=== PATIENT | male | born 1935 | race Caucasian/White ===

== ENCOUNTER 2016-03-12 12:58 | Inpatient (IN) | payer MEDICARE, OTHER ==
[~2016-03-12] VITALS: Ht 172.7 cm; Wt 89.3 kg
[2016-03-12] VITALS (8 sets, daily range): BP systolic 82–100; BP diastolic 47–68; PULSE 61–71; RESP 18; TEMP 97.6–97.7; O2SAT 98–100
[~2016-03-12 12:58] MED LIST: ANUS25SU PR; EZET10 PO; HYDR12.56 PO; SIMV40 PO; WARF2.5 PO; WARF5 PO; ePHEDrine/NS 25 MG/5 ML SYR IV ONE
--- NOTE | 2016-03-12 13:00 | PD ---
HPI Chief Complaint: abdominal pain, status post cholecystectomy Time Seen by Provider: 13:00 Travel History International Travel<30 days: No Contact w/Intl Traveler<30days: No Traveled to known affect area: No History of Present Illness HPI 80-year-old male came to the emergency room brought by EMS with history of syncopal episode at [facility]. Patient was recently operated and had a cholecystectomy done 1 week ago at [facility]. Patient is on Coumadin for prostatic heart valve and the Coumadin was stopped during the surgery. Patient was discharged home in couple days ago and was sent home on Lovenox and Coumadin which patient has been taking. He says he was having progressively worsening abdominal pain and distention since then. Today he was at the [facility] and was not feeling well and suddenly collapsed. 911 was called and when EMS arrived patient was coming back to his consciousness and they noticed that his pulse was in the 30s. When he stood up a little bit to transfer to the stretcher he passed out again. When patient arrived to the ER he was awake, eyes closed and answering questions. Patient said he was not feeling good at all and his blood pressure was 87/45. Heart rate was in the 70s. [facility] Past Medical History Narrative Medical List of his past medical history as reviewed from the nursing note. High Cholesterol: Yes Diminished Hearing: No Hypertension: Yes Immunizations Current: Yes Past Surgical History Valve Replacement: Yes (NOV 1998) Social History Alcohol Use: No Tobacco Use: No Substance Use: No Allergies-Medications (Allergen,Severity, Reaction): Coded Allergies: No Known Allergies (Unverified , 03/12/16) Comments No known drug allergies. Reported Meds & Prescriptions Reported Meds & Active Scripts Active Reported Zetia (Ezetimibe) 10 Mg Tab 10 Mg PO HS Hydrochlorothiazide 12.5 Mg Tab 12.5 Mg PO HS Zocor (Simvastatin) 40 Mg Tab 40 Mg PO HS Coumadin (Warfarin) 5 Mg Tab 5 Mg PO MOTHSA @ HS Coumadin (Warfarin) 2.5 Mg Tab 2.5 Mg PO SUTUWEFR @ HS Allopurinol 100 Mg Tab 100 Mg PO BID Narrative Medication List of his home medications reviewed from the nursing note. Review of Systems Except as stated in HPI: all other systems reviewed are Neg Physical Exam Narrative GENERAL: Awake, alert, elderly, moderate to significant distress SKIN: Warm and dry. Pale HEAD: Atraumatic. Normocephalic. EYES: Pupils equal and round. No scleral icterus. No injection or drainage. Pallor ENT: No nasal bleeding or discharge. Mucous membranes pink and moist. NECK: Trachea midline. No JVD. CARDIOVASCULAR: Regular rate and rhythm. No murmur appreciated. RESPIRATORY: No accessory muscle use. Clear to auscultation. Breath sounds equal bilaterally. GASTROINTESTINAL: Distended and tense abdomen, bruising, surgical wound from laparoscopy. Hepatic and splenic margins not palpable. MUSCULOSKELETAL: No obvious deformities. No clubbing. No cyanosis. No edema. NEUROLOGICAL: Awake and alert. No obvious cranial nerve deficits. Motor grossly within normal limits. Normal speech. PSYCHIATRIC: Appropriate mood and affect; insight and judgment normal. Data Data Last Documented VS Vital Signs Date Time Temp Pulse Resp B/P Pulse Ox O2 Delivery O2 Flow Rate FiO2 03/12/16 14:16 97.7 68 18 100/56 100 Room Air Orders Complete Blood Count With Diff (03/12/16 13:10) Comprehensive Metabolic Panel (03/12/16 13:10) Prothrombin Time / Inr (Pt) (03/12/16 13:10) Urinalysis - C+S If Indicated (03/12/16 13:10) Ct Abd/Pel W/O Iv Contrast (03/12/16 13:10) Iv Access Insert/Monitor (03/12/16 13:10) Ecg Monitoring (03/12/16 13:10) Oximetry (03/12/16 13:10) Sodium Chlor 0.9% 1000 Ml Inj (Ns 1000 M (03/12/16 13:10) Sodium Chloride 0.9% Flush (Ns Flush) (03/12/16 13:15) Type And Screen (03/12/16 13:10) Red Blood Cells (Rbc) (03/12/16 13:10) Sodium Chlor 0.9% 250 Ml Inj (Ns 250 Ml (03/12/16 13:15) Fresh Frozen Plasma (Ffp) (03/12/16 13:10) Urinary Catheter Insert/Apply (03/12/16 13:10) Chest, Single Ap (03/12/16 ) Phytonadione Inj (Vitamin K Inj) (03/12/16 13:45) Nicardipine Inj (Cardene Inj) (03/12/16 14:00) Piperacil-Tazo 4.5 Gm Premix (Zosyn 4.5 (03/12/16 14:00) Vancomycin Inj (Vancomycin Inj) (03/12/16 14:00) Blood Product Administration .UPON TRANSFUSION (03/12/16 14:03) Admit Order (Ed Use Only) (03/12/16 14:10) Labs Laboratory Tests Test 03/12/16 03/12/16 03/12/16 13:30 13:40 13:44 White Blood Count 16.2 TH/MM3 Red Blood Count 2.79 MIL/MM3 Hemoglobin 9.0 GM/DL Hematocrit 26.3 % Mean Corpuscular Volume 94.1 FL Mean Corpuscular Hemoglobin 32.2 PG Mean Corpuscular Hemoglobin 34.3 % Concent Red Cell Distribution Width 14.9 % Platelet Count 192 TH/MM3 Mean Platelet Volume 10.0 FL Neutrophils (%) (Auto) 84.6 % Lymphocytes (%) (Auto) 9.4 % Monocytes (%) (Auto) 5.5 % Eosinophils (%) (Auto) 0.1 % Basophils (%) (Auto) 0.4 % Neutrophils # (Auto) 13.7 TH/MM3 Lymphocytes # (Auto) 1.5 TH/MM3 Monocytes # (Auto) 0.9 TH/MM3 Eosinophils # (Auto) 0.0 TH/MM3 Basophils # (Auto) 0.1 TH/MM3 CBC Comment DIFF FINAL Differential Comment Prothrombin Time 12.6 SEC Prothromb Time International 1.1 RATIO Ratio Urine Color YELLOW Urine Turbidity CLEAR Urine pH 5.5 Urine Specific [place] 1.018 Urine Protein TRACE mg/dL Urine Glucose (UA) NEG mg/dL Urine Ketones NEG mg/dL Urine Occult Blood NEG Urine Nitrite NEG Urine Bilirubin NEG Urine Urobilinogen LESS THAN 2.0 MG/DL Urine Leukocyte Esterase SMALL Urine RBC 4 /hpf Urine WBC 2 /hpf Urine Squamous Epithelial <1 /hpf Cells Urine Bacteria RARE /hpf Urine Hyaline Casts 1 /lpf Urine Mucus MOD /lpf Microscopic Urinalysis Comment CULT NOT INDICATED Sodium Level 137 MEQ/L Potassium Level 4.7 MEQ/L Chloride Level 101 MEQ/L Carbon Dioxide Level 24.0 MEQ/L Anion Gap 12 MEQ/L Blood Urea Nitrogen 34 MG/DL Creatinine 3.05 MG/DL Estimat Glomerular Filtration 20 ML/MIN Rate Random Glucose 217 MG/DL Calcium Level 8.5 MG/DL Total Bilirubin 0.6 MG/DL Aspartate Amino Transf 43 U/L (AST/SGOT) Alanine Aminotransferase 49 U/L (ALT/SGPT) Alkaline Phosphatase 45 U/L Total Protein 5.6 GM/DL Albumin 3.0 GM/DL Blood Type O POSITIVE O POSITIVE Antibody Screen NEGATIVE Crossmatch Leukocyte-Reduced Leukocyte-Reduced Red Blood Red Blood Cells Cells Blood Bank Comment MDM Medical Decision Making Medical Screen Exam Complete: Yes Emergency Medical Condition: Yes Medical Record Reviewed: Yes Differential Diagnosis Post op intra-abdominal bleed, peritonitis, biliary leak Narrative Course 2:36 PM based on the bedside ultrasound and patient's condition I ordered 1 L IV fluid bolus and 2 units of uncrossed matched blood. My suspicion was very high for intra-abdominal bleed. I immediately called the general surgeon and spoke with Dr. Simms. He'll get me know that he was in the OR operating and as soon as he was done he would come down to see the patient. Patient's blood pressure has slowly started to come up and currently between 90-100 systolic. However his abdomen seems to be more distended currently. Blood test results have come back. I spoke with the enrollment clerk from [facility] and he wants the patient to be sent to the CAT scan stat. Awaiting for the CT to be done and resulted. Awaiting for Dr. Simms. Patient's mental status remains stable. Given the fact the patient is getting Lovenox and started on Coumadin I gave him 10 mg of subcutaneous vitamin K and ordered 2 units of FFP. Critical Care Narrative Aggregate critical care time was 60 minutes. Time to perform other separately billable procedures was not included in the critical care time. My time did not include minutes spent treating any other patients simultaneously or on activities that did not directly contribute to the patient's treatment. The services I provided to this patient were to treat and/or prevent clinically significant deterioration that could result in: Inntra-abdominal bleed, hemorrhagic shock, blood transfusion, fluid resuscitation I provided critical care services requiring my management, as noted below: Chart data review, documentation time, medication orders and management, vital sign assessments/reviewing monitor data, ordering and reviewing lab tests, ordering and interpreting/reviewing x-rays and diagnostic studies, care of the patient and discussion of the patient with the admitting physicians. Procedures Procedure Narrative Emergency department E-FAST was performed with patient consent. The curvilinear probe was used in the right upper quadrant/Morison's pouch, suprapubic, left upper quadrant/spleenorenal space, epigastric, parasternal long axis and anterior bilateral chest wall. There was significant amount of positive free fluid. Most possibly blood EKG Prior to Arrival: No Physician Communication Physician Communication Dr. Simms, Dr. Noriega Diagnosis Primary Impression: Intra abdominal hemorrhage Additional Impression: Postoperative hemorrhagic shock Qualified Code: T81.19XA - Postoperative hemorrhagic shock, initial encounter Admitting Information Admitting Physician Requests: Admit Kaleigh Romo MD Mar 12, 2016 13:00 Kaleigh Romo MD Mar 12, 2016 13:00
[2016-03-12] MEDS ORDERED: SODIUM CHLOR 0.9% 1000 ML INJ 1,000 ML IV SCH (13:10)
[2016-03-12] MEDS ORDERED: SODIUM CHLORIDE 0.9% FLUSH 5 ML FLUSH IVF PRN (13:15)
[2016-03-12] MEDS ORDERED: SODIUM CHLOR 0.9% 250 ML INJ 250 ML IV ONE (13:15)
[2016-03-12] MEDS ORDERED: HYDR12.56 PO (13:30)
[2016-03-12] MEDS ORDERED: COUM5TAB PO (13:30)
[2016-03-12] MEDS ORDERED: ZETI10TA5 PO (13:30)
[2016-03-12] MEDS ORDERED: ALLO100T PO (13:30)
[2016-03-12] MEDS ORDERED: ZOCO40TA PO (13:30)
[2016-03-12] MEDS ORDERED: COUM2.5T PO (13:30)
[2016-03-12 13:43] LABS: AUTOMATED NEUTROPHIL # 13.7 TH/MM3 (1.8-7.7); BASOPHIL # 0.1 TH/MM3 (0-0.2); BASOPHIL % 0.4 % (0.0-2.0); EOSINOPHIL % 0.1 % (0.0-4.0); HEMATOCRIT 26.3 % (39.0-51.0); HEMO FLAGS DIFF FINAL; LYMPH % 9.4 % (9.0-44.0); LYMPHOCYTE # 1.5 TH/MM3 (1.0-4.8); MEAN CELL VOLUME 94.1 FL (80.0-100.0); MEAN CORPUSCULAR HEMOGLOBIN 32.2 PG (27.0-34.0); MEAN CORPUSCULAR HGB CONC 34.3 % (32.0-36.0); MONO % 5.5 % (0.0-8.0); NEUT % 84.6 % (16.0-70.0); PLATELET COUNT 192 TH/MM3 (150-450); RED BLOOD COUNT 2.79 MIL/MM3 (4.50-5.90); RED CELL DISTRIBUTION WIDTH 14.9 % (11.6-17.2); WHITE BLOOD COUNT 16.2 TH/MM3 (4.0-11.0)
[2016-03-12] MEDS ORDERED: PHYTONADIONE 10 MG/ML VIAL SQ ONE (13:45)
[2016-03-12 13:54] LABS: INTERNATIONAL NORMALIZED RATIO 1.1 RATIO; PROTHROMBIN TIME - PATIENT 12.6 SEC (9.8-11.6)
[2016-03-12 13:58] LABS: ANION GAP 12 MEQ/L (5-15); AST (GOT) 43 U/L (15-37); BLOOD UREA NITROGEN 34 MG/DL (7-18); CHLORIDE 101 MEQ/L (98-107); GLOMERULAR FILTRATION RATE 20 ML/MIN (>89); POTASSIUM 4.7 MEQ/L (3.5-5.1); SODIUM (NA) 137 MEQ/L (136-145)
[2016-03-12 14:00] LABS: BACTERIA, URINE RARE /hpf; BLOOD, URINE NEG (NEG); GLUCOSE,URINE NEG (NEG); HYALINE CAST, URINE 1 /lpf (RARE); KETONE, URINE NEG (NEG); MUCUS URINE MOD /lpf (OCC); NITRITE,URINE NEG (NEG); PH, URINE 5.5 (5.0-8.5); SQUAMOUS EPITHELIAL CELL URINE <1 /hpf (0-5); URINE COLOR YELLOW (YELLW/STRAW)
[2016-03-12] MEDS: VANCOMYCIN INJ 1,000 MG in SODIUM CHLOR 0.9% 250 ML INJ 250 ML IV ONE ×2 (14:00→15:10)
[2016-03-12] MEDS ORDERED: PIPERACIL-TAZO 4.5 GM PREMIX 100 ML IV ONE (14:00)
[2016-03-12] MEDS ORDERED: niCARdipine INJ 25 MG in SODIUM CHLOR 0.9% 250 ML INJ 250 ML IV SCH (14:00)
[2016-03-12 14:01] LABS: ALKALINE PHOSPHATASE 45 U/L (45-117); ALT (GPT) 49 U/L (12-78); COMMENT (UR) CULT NOT INDICATED; CULTURE IF INDICATED CULT NOT INDICATED; TOTAL BILIRUBIN ADULT 0.6 MG/DL (0.2-1.0)
--- NOTE | 2016-03-12 14:05 | RADRPT ---
EXAM DATE/TIME: 03/12/2016 13:52 [facility] COMPARISON: No previous studies available for comparison. INDICATIONS : Syncopal episode. MEDICAL HISTORY : Hypertension. SURGICAL HISTORY : CABG. ENCOUNTER: Initial ACUITY: 1 day PAIN SCORE: 0/10 LOCATION: Bilateral chest FINDINGS: A single view of the chest demonstrates the lungs to be symmetrically aerated without evidence of mas s, infiltrate or effusion. The heart size is enlarged. There is evidence of previous cardiothoracic surgery.. Osseous structures are intact. CONCLUSION: No acute pulmonary infiltrates. Pop Anderson MD on March 12, 2016 at 14:03 Board Certified Radiologist. This report was verified electronically.
[2016-03-12] MEDS ORDERED: PROTAMINE SULFATE 50 MG/5 ML VIAL IV PUSH ONE ×3 (15:00→15:15)
--- NOTE | 2016-03-12 15:04 | RADRPT ---
EXAM DATE/TIME: 03/12/2016 14:37 [facility] COMPARISON: No previous studies available for comparison. INDICATIONS : Discomfort and distention in abdominal area. Cholecystectomy six days ago. ORAL CONTRAST: No oral contrast ingested. RADIATION DOSE: 9.96 CTDIvol (mGy) MEDICAL HISTORY : Hypertension. SURGICAL HISTORY : Cholecystectomy. ENCOUNTER: Initial ACUITY: 1 day PAIN SCALE: 5/10 LOCATION: abdomen/pelvis TECHNIQUE: Volumetric scanning of the abdomen and pelvis was performed. Using automated exposure control and ad justment of the mA and/or kV according to patient size, radiation dose was kept as low as reasonably achievable to obtain optimal diagnostic quality images. The lack of IV contrast limits the diagnosis for certain organ pathology. FINDINGS: LOWER LUNGS: Bibasilar atelectasis. LIVER: Homogeneous density. There is a cyst in the right lobe measuring 2.2 cm. There is a cyst near the por ta hepatis measuring 3 cm. There is no dilation of the biliary tree. Status post recent cholecystect violeta. There is complex fluid around the liver. SPLEEN: Normal size without lesion. There is complex fluid around the spleen. PANCREAS: Within normal limits. KIDNEYS: Normal in size and shape. There is no mass, stone, or hydronephrosis. ADRENAL GLANDS: Within normal limits. VASCULAR: There is no aortic aneurysm. BOWEL/MESENTERY: The bowel gas pattern is within normal limits. There is complex fluid around the liver and spleen. Th ere is a complex mass measuring 12.3 cm x 6.4 cm in the right midabdomen. There is free fluid seen in the pelvis and along the paracolic gutters. The findings are suggestive of hemorrhage within the per itoneal cavity. The prominent mass is most likely a large hematoma. ABDOMINAL WALL: Within normal limits. There is nonspecific edema in the posterior soft tissues RETROPERITONEUM: There is no lymphadenopathy. BLADDER: Land catheter in place. Non-distended REPRODUCTIVE: Within normal limits. INGUINAL: There is no lymphadenopathy or hernia. MUSCULOSKELETAL: Within normal limits for patient age. The findings were called by telephone to the ER physician. CONCLUSION: 1. Large amount of complex fluid seen throughout the abdomen and pelvis suspicious for hemorrhage. 2. There is a large complex mass in the right midabdomen which I suspect is a large hematoma. This is just inferior to the right lobe of the liver. 3. There are 2 benign-appearing hepatic cysts. 4. Status post cholecystectomy. Pop J. Siragusa, MD on March 12, 2016 at 14:53 Board Certified Radiologist. This report was verified electronically.
[2016-03-12] MEDS ORDERED: ONDANSETRON HCL 4 MG/2 ML VIAL IV PUSH ONE (15:05)
[2016-03-12] MEDS ORDERED: ePHEDrine/NS 25 MG/5 ML SYR IV ONE (15:05)
[2016-03-12] MEDS ORDERED: PHENYLEPH/NS 1000 MCG/10 ML SYR IV ONE ×2 (15:05→15:14)
[2016-03-12] MEDS ORDERED: PROPOFOL 200 MG/20 ML AMP IV ONE (15:05)
[2016-03-12] MEDS ORDERED: NORMOSOL R INJ 2,000 ML IV ONE (15:05)
[2016-03-12] MEDS ORDERED: NEOSTIGMINE 3 MG/3 ML SYR IV ONE (15:05)
[2016-03-12] MEDS ORDERED: ETOMIDATE 40 MG/20 ML VIAL IV PUSH ONE (15:14)
[2016-03-12] MEDS: PANTOPRAZOLE SODIUM 40 MG VIAL IV SCH (15:45)
[2016-03-12] MEDS ORDERED: CHLORHEXIDINE GLUCONATE 2 % 1 PACK (2 CLOTHS) TOP PRN (15:45)
[2016-03-12] MEDS ORDERED: SODIUM CHLOR 0.9% 1000 ML INJ 1,000 ML IV ONE (15:45)
[2016-03-12] MEDS ORDERED: SODIUM CHLORIDE 0.9% FLUSH 5 ML FLUSH IV FLUSH PRN (15:45)
[2016-03-12] MEDS ORDERED: RESP: ALBUTEROL 2.5 MG/IPRATROPIUM 0.5 MG NEB (PRN) INH (15:45)
[2016-03-12] MEDS ORDERED: MISCELLANEOUS NURSING INFORMATION XX SCH (15:45)
[2016-03-12] MEDS ORDERED: MORPHINE SULFATE 4 MG/ML INJ IV PRN (16:00)
[2016-03-12] MEDS ORDERED: BISACODYL EC 5 MG TABEC PO PRN (16:00)
[2016-03-12] MEDS ORDERED: ONDANSETRON HCL 4 MG/2 ML VIAL IV PRN (16:00)
[2016-03-12] MEDS ORDERED: SENNOSIDES 8.6 MG TAB PO PRN (16:00)
--- NOTE | 2016-03-12 16:01 | HHI.HP ---
HPI Service Critical Care Medicine Primary Care Physician Non-Staff Admission Diagnosis Intraabdominal hemorrhage s/o recent cholecystectomy, syncope Diagnosis: Travel History International Travel<30 Days: No Contact w/Intl Traveler <30 Da: No Traveled to Known Affected Are: No History of Present Illness 72-year-old male with a medical history significant for mechanical aortic valve on anticoagulation who recently underwent cholecystectomy on March 06 at [facility] [place]. He was on Lovenox preoperatively 150 mg every 12 hourly reportedly per family. Following cholecystectomy he required 3 units of PRBCs over the next 2 days and was Admitted at the hospital because of intra- abdominal blood loss and borderline blood pressure and was subsequently discharged on Friday 03/10 and was resumed on Coumadin and Lovenox 75 mg every 12 hourly. He continued to have some dizziness at home following discharge with lightheadedness. This morning patient got worse with increasing lightheadedness and abdominal tightness with increasing distention. He suddenly collapsed and EMS was called - patient was found to be hypotensive and transferred to [facility] ER. He was noted to have a blood pressure of 87 x 45 with heart rate in the 70s on arrival in the ER and appeared extremely pale for documentation. He was found to have free fluid in his abdomen on ultrasound done by ER physician and was diagnosed to have intra-abdominal bleeding. He was given 2 units of O- uncrossmatched blood stat and 1 L of normal saline bolus. Patient was accepted for admission by critical care medicine service and I immediately went to the ER on being notified. As I arrived patient was just being we'll await for CT abdomen pelvis. History is obtained by discussion with patient's family at bedside and subsequently from patient. When I evaluated the patient he was laying on the stretcher. He denied any lightheadedness on laying flat. He denied any chest pain or shortness of breath. He did complain of some abdominal tightness and distention. He had taken a dose of Lovenox 75 mg subcutaneously this morning around 10 AM and had Coumadin last night. He received vitamin K ordered by ER physician. I subsequently ordered protamine 50 mg IV stat after discussion with Dr. Simms who planned to take the patient to the OR. Off note patient did have some abnormal kidney function per family prior to discharge from [place]. His creatinine was 3.3 today on arrival. History PFSH Past Medical History Narrative Medical High Cholesterol: Yes Diminished Hearing: No Hypertension: Yes Immunizations Current: Yes Past Surgical History Valve Replacement: Yes (NOV 1998) Status post aortic valve replacement with mechanical aortic valve Social History Alcohol Use: Moderate Tobacco Use: No Substance Use: No Allergies-Medications Allergies-Medications (Allergen,Severity, Reaction): Coded Allergies: No Known Allergies (Unverified , 03/12/16) Comments No known drug allergies. Reported Meds & Prescriptions Reported Meds & Active Scripts Active Reported Zetia (Ezetimibe) 10 Mg Tab 10 Mg PO HS Hydrochlorothiazide 12.5 Mg Tab 12.5 Mg PO HS Zocor (Simvastatin) 40 Mg Tab 40 Mg PO HS Coumadin (Warfarin) 5 Mg Tab 5 Mg PO MOTHSA @ HS Coumadin (Warfarin) 2.5 Mg Tab 2.5 Mg PO SUTUWEFR @ HS Allopurinol 100 Mg Tab 100 Mg PO BID ROS Review of Systems Except as stated in HPI: all other systems reviewed are Neg Physical Exam Vital Signs Vital Signs Date Time Temp Pulse Resp B/P Pulse Ox O2 Delivery O2 Flow Rate FiO2 03/12/16 14:16 97.7 68 18 100/56 100 Room Air 03/12/16 14:00 97.6 61 18 96/58 100 Room Air 03/12/16 13:50 97.7 61 18 100/62 98 Room Air 03/12/16 13:39 63 18 96/50 100 Room Air 03/12/16 13:35 98 Room Air 03/12/16 13:11 63 18 96 Room Air 03/12/16 13:00 97.6 71 18 82/47 98 Physical Exam Narrative GENERAL: Awake, alert, elderly male laying flat in ER stretcher SKIN: Warm and dry. Pale HEAD: Atraumatic. Normocephalic. EYES: Pupils equal and round. No scleral icterus. No injection or drainage. Pallor ENT: No nasal bleeding or discharge. Mucous membranes pink and moist. NECK: Trachea midline. No JVD. CARDIOVASCULAR: Regular rate and rhythm. No murmur appreciated. RESPIRATORY: No accessory muscle use. Clear to auscultation. Breath sounds equal bilaterally. GASTROINTESTINAL: Distended and tense abdomen, bruising, surgical wound from laparoscopy. Hepatic and splenic margins not palpable. Bowel sounds sluggish MUSCULOSKELETAL: No obvious deformities. No clubbing. No cyanosis. No edema. NEUROLOGICAL: Awake and alert. No obvious cranial nerve deficits. Motor grossly within normal limits. Normal speech. PSYCHIATRIC: Appropriate mood and affect; insight and judgment normal. Laboratory Laboratory Tests Test 03/12/16 03/12/16 03/12/16 13:30 13:40 13:44 White Blood Count 16.2 Red Blood Count 2.79 Hemoglobin 9.0 Hematocrit 26.3 Mean Corpuscular Volume 94.1 Mean Corpuscular Hemoglobin 32.2 Mean Corpuscular Hemoglobin 34.3 Concent Red Cell Distribution Width 14.9 Platelet Count 192 Mean Platelet Volume 10.0 Neutrophils (%) (Auto) 84.6 Lymphocytes (%) (Auto) 9.4 Monocytes (%) (Auto) 5.5 Eosinophils (%) (Auto) 0.1 Basophils (%) (Auto) 0.4 Neutrophils # (Auto) 13.7 Lymphocytes # (Auto) 1.5 Monocytes # (Auto) 0.9 Eosinophils # (Auto) 0.0 Basophils # (Auto) 0.1 CBC Comment DIFF FINAL Differential Comment Prothrombin Time 12.6 Prothromb Time International 1.1 Ratio Urine Color YELLOW Urine Turbidity CLEAR Urine pH 5.5 Urine Specific [place] 1.018 Urine Protein TRACE Urine Glucose (UA) NEG Urine Ketones NEG Urine Occult Blood NEG Urine Nitrite NEG Urine Bilirubin NEG Urine Urobilinogen LESS THAN 2.0 Urine Leukocyte Esterase SMALL Urine RBC 4 Urine WBC 2 Urine Squamous Epithelial <1 Cells Urine Bacteria RARE Urine Hyaline Casts 1 Urine Mucus MOD Microscopic Urinalysis Comment CULT NOT INDICATED Sodium Level 137 Potassium Level 4.7 Chloride Level 101 Carbon Dioxide Level 24.0 Anion Gap 12 Blood Urea Nitrogen 34 Creatinine 3.05 Estimat Glomerular Filtration 20 Rate Random Glucose 217 Calcium Level 8.5 Total Bilirubin 0.6 Aspartate Amino Transf 43 (AST/SGOT) Alanine Aminotransferase 49 (ALT/SGPT) Alkaline Phosphatase 45 Total Protein 5.6 Albumin 3.0 Blood Type O POSITIVE O POSITIVE Antibody Screen NEGATIVE Crossmatch Leukocyte-Reduced Leukocyte-Reduced Red Blood Red Blood Cells Cells Blood Bank Comment Result Diagram: 03/12/16 1330 03/12/16 1330 Imaging Last Impressions Abdomen/Pelvis CT 03/12/16 1310 Signed Impressions: Service Date/Time: Saturday, March 12, 2016 14:37 - CONCLUSION: 1. Large amount of complex fluid seen throughout the abdomen and pelvis suspicious for hemorrhage. 2. There is a large complex mass in the right midabdomen which I suspect is a large hematoma. This is just inferior to the right lobe of the liver. 3. There are 2 benign-appearing hepatic cysts. 4. Status post cholecystectomy. Pop Anderson MD Chest X-Ray 03/12/16 0000 Signed Impressions: Service Date/Time: Saturday, March 12, 2016 13:52 - CONCLUSION: No acute pulmonary infiltrates. Pop Anderson MD Assessment and Plan Assessment and Plan 80-year-old male with: Acute blood loss anemia Intra-abdominal bleeding hemorrhagic shock Acute kidney injury Hyperglycemia Recent laparoscopic cholecystectomy Hyperlipidemia Hypertension Plan: Neuro: Follow neuro status. Morphine when necessary for pain. [place] when necessary when cleared for by mouth. Cardiovascular: Aggressive fluid resuscitation. Status post 2 units PRBCs. Continue maintenance IV fluids. Anticoagulation being reversed. Protamine 50 mg IV to reverse Lovenox ordered. Vitamin K ordered by ER physician. Cardiology consulted for mechanical aortic valve as patient is now off anticoagulation for bleeding intra-abdominally and need for surgical drainage. Pulmonary: Supplemental O2 as needed. Bronchodilators when necessary GI/liver: Status post recent cholecystectomy. Keep nothing by mouth as Dr. Simms planning to take patient to the OR for laparoscopy and possible evacuation of intra-abdominal hematoma following reversal of Lovenox. Renal/: IV hydration, strict intake output, monitor and replete electrolytes, follow BUN/creatinine. Check UA. ID: Perioperative antibiotic prophylaxis per Dr. Simms Heme: Follow CBC. Lovenox and Coumadin to be held currently. Vitamin K and protamine ordered to reverse Coumadin and Lovenox prior to exploration by Dr. Simms. Transfuse to keep hemoglobin above 8 g percent. Endocrine: Watch for hyperglycemia. SSI for glycemic control Prophylaxis: PPI/SCDs. Start subcutaneous heparin/Lovenox when okay with Dr. Simms for DVT prophylaxis and eventually will need full anticoagulation for mechanical aortic valve. Condition critical. Discussed with Dr. Simms. Discussed with patient and family members at bedside regarding current clinical status and plan of care and they voiced understanding and were agreeable. Time spent on critical care excluding procedures 60 minutes Popeye Noriega MD Mar 12, 2016 16:01
[2016-03-12] MEDS ORDERED: GLUCAGON 1 MG/ML VIAL IM/SQ PRN (16:15)
[2016-03-12] MEDS ORDERED: DEXTROSE 50% IN WATER 50 ML VIAL(D50) IV PRN (16:15)
[2016-03-12] MEDS ORDERED: fentaNYL CITRATE 250 MCG/5 ML AMP ONE (16:20)
[2016-03-12] MEDS ORDERED: ACETAMINOPHEN 1000 MG/100 ML VIAL IV ONE (16:20)
[2016-03-12] MEDS ORDERED: DICLOFENAC SODIUM 37.5 MG/ML VIAL IV PUSH ONE (16:20)
[2016-03-12] MEDS ORDERED: MIDAZOLAM HCL 2 MG/2 ML VIAL ONE (16:20)
[2016-03-12] MEDS ORDERED: BUPIVACAINE/EPINEPHRINE 0.25% PF 30 ML VIAL ONE (17:11)
--- NOTE | 2016-03-12 19:21 | HHI.PR ---
cc: Harry Simms MD Immediate Post Op Note Procedure Date: Mar 12, 2016 Pre Op Diagnosis: (1) Intra abdominal hemorrhage (2) Postoperative hemorrhagic shock Post Op Diagnosis: (1) Intra abdominal hemorrhage (2) Postoperative hemorrhagic shock Surgeon: Harry Simms [employer] Architect(s): Please refer to the OR record Procedure: Diagnostic laparoscopy Evacuation of large intra-abdominal hematoma and intra-abdominal blood Placement of LYRIC drain to drain the gallbladder fossa Complications: None Specimen(s) removed: Old clot Estimated blood loss: 500 cc or more of old blood and clot Anesthesia: General Drains: None IVF Patient to: PACU Patient Condition: Good Implant/Devices: SEE IMPLANT LOG (if applicable) Date/Time of Procedure: SEE SURGICAL CARE RECORD Harry Simms MD Mar 12, 2016 19:21
[2016-03-12 20:57] LABS: AUTOMATED NEUTROPHIL # 9.3 TH/MM3 (1.8-7.7); BASOPHIL % 0.2 % (0.0-2.0); HEMATOCRIT 25.1 % (39.0-51.0); HEMO FLAGS DIFF FINAL; LYMPH % 7.2 % (9.0-44.0); LYMPHOCYTE # 0.8 TH/MM3 (1.0-4.8); MEAN CELL VOLUME 90.8 FL (80.0-100.0); MEAN CORPUSCULAR HEMOGLOBIN 30.4 PG (27.0-34.0); MEAN CORPUSCULAR HGB CONC 33.5 % (32.0-36.0); MONO % 9.1 % (0.0-8.0); NEUT % 83.5 % (16.0-70.0); PLATELET COUNT 105 TH/MM3 (150-450); RED BLOOD COUNT 2.76 MIL/MM3 (4.50-5.90); RED CELL DISTRIBUTION WIDTH 14.8 % (11.6-17.2); WHITE BLOOD COUNT 11.2 TH/MM3 (4.0-11.0)
[2016-03-12 21:17] LABS: APTT (PATIENT) 36.2 SEC (24.3-30.1); INTERNATIONAL NORMALIZED RATIO 1.2 RATIO; PROTHROMBIN TIME - PATIENT 13.4 SEC (9.8-11.6)
[2016-03-12] MEDS ORDERED: PROPOFOL 1000 MG/100 ML INJ 100 ML ONE (21:35)
[2016-03-12] MEDS: SODIUM CHLOR 0.9% 1000 ML INJ 1,000 ML IV SCH ×2 (21:55→22:40)
[2016-03-12] MEDS ORDERED: DO NOT ADM ANY ANTICOAGULANT DRUGS XX PRN (22:00)
[2016-03-12] MEDS ORDERED: PROPOFOL 1000 MG/100 ML IV SCH (22:00)
[2016-03-12] MEDS: SODIUM CHLORIDE 0.9% FLUSH 5 ML FLUSH IV FLUSH SCH (22:00)
[2016-03-12] MEDS ORDERED: *morphine SULFATE 8 MG/ML PERIprocedure ONLY ONE (22:09)
[2016-03-12] MEDS: INSULIN ASPART SUPPLEMENTAL SCALE SQ SCH (22:10)
[2016-03-13] VITALS (13 sets, daily range): BP systolic 106–128; BP diastolic 37–67; PULSE 57–70; RESP 15–17; TEMP 97.7–100; O2SAT 97–100
[2016-03-13 01:40] LABS: BLOOD GAS BASE EXCESS -4.2 mmol/L (-2-2); BLOOD GAS HCO3 20 mmol/L (22-26); BLOOD GAS METHEMOGLOBIN 0.9 % (0-2); BLOOD GAS O2 HGB SATURATION 95 % (90-100); BLOOD GAS OXYGEN CONTENT 11.5 Vol % (12.0-20.0); BLOOD GAS PCO2 37 mmHg (38-42); BLOOD GAS PO2 95 mmHg (61-120); BLOOD GAS TOTAL HGB 8.5 G/DL (12.0-16.0); CRITICAL VALUE NO; DRAW SITE ALINE; FIO2 50 %; OXYGEN DEVICE VENTILATOR; TEMP CORR TO 98.6; VENT SETTINGS AC14/550/PEEP5
[2016-03-13 01:41] LABS: STAT NO; ULNAR PULSE PRESENT
[2016-03-13 02:06] LABS: AUTOMATED NEUTROPHIL # 7.4 TH/MM3 (1.8-7.7); BASOPHIL % 0.1 % (0.0-2.0); HEMATOCRIT 25.2 % (39.0-51.0); HEMO FLAGS AUTO DIFF; LYMPH % 10.5 % (9.0-44.0); LYMPHOCYTE # 0.9 TH/MM3 (1.0-4.8); MEAN CELL VOLUME 87.5 FL (80.0-100.0); MEAN CORPUSCULAR HEMOGLOBIN 30.8 PG (27.0-34.0); MEAN CORPUSCULAR HGB CONC 35.2 % (32.0-36.0); MONO % 5.6 % (0.0-8.0); NEUT % 83.8 % (16.0-70.0); PLATELET COUNT 83 TH/MM3 (150-450); RED BLOOD COUNT 2.88 MIL/MM3 (4.50-5.90); RED CELL DISTRIBUTION WIDTH 14.8 % (11.6-17.2); WHITE BLOOD COUNT 8.8 TH/MM3 (4.0-11.0)
[2016-03-13 02:16] LABS: BICARBONATE 23.5 MEQ/L (21.0-32.0); CALCIUM-PROTEIN CORRECTED 8.2 MG/DL (8.5-10.1); POTASSIUM 4.6 MEQ/L (3.5-5.1); TOTAL BILIRUBIN ADULT 0.8 MG/DL (0.2-1.0)
[2016-03-13 02:44] LABS: PLATELET ESTIMATE SMEAR LOW (NORMAL); PLATELET MORPHOLOGY NORMAL (NORMAL); SCAN/DIFF AUTO DIFF CONFIRMED
[2016-03-13] MEDS: CHLORHEXIDINE GLUCONATE 2 % 1 PACK (2 CLOTHS) TOP SCH (04:00)
[2016-03-13] MEDS: SODIUM CHLOR 0.9% 1000 ML INJ 1,000 ML IV SCH ×2 (05:20→22:29)
--- NOTE | 2016-03-13 05:36 | MB ---
cc: NEMESIOHARRY DATE OF CONSULTATION 03/12/2016 REASON FOR CONSULTATION Intraabdominal bleeding. HISTORY This is a pleasant 80-year-old gentleman who had undergone cholecystectomy the at [facility] by Dr. Roy. Apparently the patient was on anticoagulation because of his heart valve. He was a little oozy after his surgery; a LYRIC had been placed but this oozing had stopped. He was sent home on Sunday; he was doing very well, then went to religion and then became hypotensive and dizzy, was brought to the emergency room here at [place] and a CT scan showed a fair amount of blood. I did talk to Dr. Roy on the telephone; he update me on his clinical condition. Apparently the family states the patient was getting Lovenox 150 mg twice a day. At any rate, he is here and requires urgent exploration. PAST MEDICAL HISTORY 1. Significant for a heart valve. He is on anticoagulation for a long period of time. 2. He has hypertension. MEDICATIONS He was taking Coumadin. He had taken his dose of Coumadin but he was on the Lovenox 150 mg b.i.d. PHYSICAL EXAMINATION GENERAL: On physical exam he is lying flat. He is alert, looks a little pale. He is wondering when he is going to the operating room. HEART: Regular rate. CHEST: He has a mediastinotomy scar. ABDOMEN: He is obviously distended and tender in his abdomen. He has old surgical sites that are healed. SKIN: There are bruises. NEUROLOGIC: He is alert, oriented, is able to converse with me. LABORATORY His white count is 16, H&H 9.26. This is down from his preoperative blood work. He was given 3 units of blood in the emergency room. ASSESSMENT A 80-year-old gentleman who had a cholecystectomy at another facility. Unfortunately he developed coagulopathy and now has a fair amount of blood in his abdomen. PLAN Discussed with the patient, the patient's family and the patient's surgeon, Dr. Roy, over at [facility]. He has been given vitamin K, he was given blood and he has been given some protamine by the critical care physician. We will take him urgently to the operating room to evaluate this hematoma and be assured of no other bleeding source. Harry Simms MD JDESTINEE/SSB /7:31 PM /5:25 AM
[2016-03-13] MEDS: INSULIN ASPART SUPPLEMENTAL SCALE SQ SCH ×3 (06:00→23:56)
--- NOTE | 2016-03-13 08:26 | MB ---
cc: RADHAMES WEBSTER DATE OF CONSULTATION: 03/12/2016 HISTORY OF PRESENT ILLNESS A 72-year-old white male with history of placement of mechanical aortic valve. He underwent cholecystectomy on March 06 at [facility]. He was started back on Coumadin and Lovenox. He had dizziness, lightheadedness and syncope. He was found to be hypotensive. He was diagnosed with bleeding from his abdomen. He was taken to surgery by Dr. Simms and was found to have hematoma which was evacuated. He is now in the ICU. His Coumadin was reversed. PAST MEDICAL HISTORY Positive for: 1. Aortic valve replacement using mechanical aortic valve in November of <<1:16>> . 2. History of hypertension. 3. Dyslipidemia. 4. Recent cholecystectomy as above. MEDICATION 1. Allopurinol. 2. Coumadin. 3. Zocor. 4. Hydrochlorothiazide. 5. Zetia. ALLERGIES None. SOCIAL HISTORY The patient does not smoke. He drinks alcohol. FAMILY HISTORY Negative for heart disease. REVIEW OF SYSTEMS Otherwise negative. PHYSICAL EXAMINATION VITAL SIGNS: Blood pressure 121/53. Pulse 60 and regular. HEENT: Negative. 2+ carotid upstrokes. No bruits. LUNGS: Clear. HEART: Regular rate and rhythm. No murmur or gallop or rub. ABDOMEN: Soft. Surgical wound dressed. EXTREMITIES: Without edema. 1+ distal pulses. NEURO: Grossly nonfocal. LABORATORY DATA Hemoglobin 8.4, potassium 4.7, creatinine 3.0. AST 43, ALT 49. DIAGNOSIS 1. Intraabdominal bleeding. 2. Hemorrhagic shock. 3. Acute kidney injury. 4. Recent laparoscopic cholecystectomy. 5. Status post aortic valve replacement using mechanical valve. 6. Hypertension. 7. Dyslipidemia. DISPOSITION Mr. Gan will be monitored in the ICU. At this time his Coumadin was reversed due to severe bleeding. Once he is stable, his Coumadin will need to be restarted since he has a mechanical aortic valve. I will follow him for cardiology during his hospitalization. Radhames Webster MD OQ/TLL /11:24 PM /8:03 AM [facility]
[2016-03-13 08:42] LABS: APTT (PATIENT) 33.4 SEC (24.3-30.1); INTERNATIONAL NORMALIZED RATIO 1.2 RATIO; PROTHROMBIN TIME - PATIENT 13.6 SEC (9.8-11.6)
[2016-03-13 08:43] LABS: MEAN CELL VOLUME 86.2 FL (80.0-100.0); MEAN CORPUSCULAR HEMOGLOBIN 30.9 PG (27.0-34.0); MEAN CORPUSCULAR HGB CONC 35.9 % (32.0-36.0); PLATELET COUNT 88 TH/MM3 (150-450); RED BLOOD COUNT 3.24 MIL/MM3 (4.50-5.90); RED CELL DISTRIBUTION WIDTH 15.3 % (11.6-17.2); WHITE BLOOD COUNT 10.7 TH/MM3 (4.0-11.0)
[2016-03-13 08:47] LABS: REVIEW FLAG FINAL
[2016-03-13 09:26] LABS: BICARBONATE 23.5 MEQ/L (21.0-32.0); CALCIUM-PROTEIN CORRECTED 7.7 MG/DL (8.5-10.1); POTASSIUM 4.8 MEQ/L (3.5-5.1); TOTAL BILIRUBIN ADULT 0.6 MG/DL (0.2-1.0)
[2016-03-13] MEDS: PANTOPRAZOLE SODIUM 40 MG VIAL IV SCH (09:29)
--- NOTE | 2016-03-13 09:30 | HHI.PR ---
Subjective Subjective Notes DAILY PROGRESS NOTE FOR SURGICAL ATTENDING, DR. HARRY SIMMS Objective Vitals/I&O Vital Signs Date Time Temp Pulse Resp B/P Pulse Ox O2 Delivery O2 Flow Rate FiO2 03/13/16 08:37 98 40 03/13/16 04:00 98.0 70 16 106/42 03/12/16 22:15 Mechanical Ventilator 03/12/16 19:39 10 Labs Laboratory Tests Test 03/12/16 03/12/16 03/12/16 03/12/16 13:30 13:40 13:44 20:40 White Blood Count 16.2 11.2 Red Blood Count 2.79 2.76 Hemoglobin 9.0 8.4 Hematocrit 26.3 25.1 Mean Corpuscular Volume 94.1 90.8 Mean Corpuscular Hemoglobin 32.2 30.4 Mean Corpuscular Hemoglobin 34.3 33.5 Concent Red Cell Distribution Width 14.9 14.8 Platelet Count 192 105 Mean Platelet Volume 10.0 9.3 Neutrophils (%) (Auto) 84.6 83.5 Lymphocytes (%) (Auto) 9.4 7.2 Monocytes (%) (Auto) 5.5 9.1 Eosinophils (%) (Auto) 0.1 0.0 Basophils (%) (Auto) 0.4 0.2 Neutrophils # (Auto) 13.7 9.3 Lymphocytes # (Auto) 1.5 0.8 Monocytes # (Auto) 0.9 1.0 Eosinophils # (Auto) 0.0 0.0 Basophils # (Auto) 0.1 0.0 CBC Comment DIFF FINAL DIFF FINAL Differential Comment Prothrombin Time 12.6 13.4 Prothromb Time International 1.1 1.2 Ratio Urine Color YELLOW Urine Turbidity CLEAR Urine pH 5.5 Urine Specific [place] 1.018 Urine Protein TRACE Urine Glucose (UA) NEG Urine Ketones NEG Urine Occult Blood NEG Urine Nitrite NEG Urine Bilirubin NEG Urine Urobilinogen LESS THAN 2.0 Urine Leukocyte Esterase SMALL Urine RBC 4 Urine WBC 2 Urine Squamous Epithelial <1 Cells Urine Bacteria RARE Urine Hyaline Casts 1 Urine Mucus MOD Microscopic Urinalysis Comment CULT NOT INDICATED Sodium Level 137 Potassium Level 4.7 Chloride Level 101 Carbon Dioxide Level 24.0 Anion Gap 12 Blood Urea Nitrogen 34 Creatinine 3.05 Estimat Glomerular Filtration 20 Rate Random Glucose 217 Calcium Level 8.5 Total Bilirubin 0.6 Aspartate Amino Transf 43 (AST/SGOT) Alanine Aminotransferase 49 (ALT/SGPT) Alkaline Phosphatase 45 Total Protein 5.6 Albumin 3.0 Blood Type O POSITIVE O POSITIVE Antibody Screen NEGATIVE Crossmatch Leukocyte-Reduced Leukocyte-Reduced Red Blood Red Blood Cells Cells Blood Bank Comment Activated Partial 36.2 Thromboplast Time Test 03/12/16 03/13/16 03/13/16 03/13/16 22:35 01:32 01:40 02:42 Nasal Screen MRSA (PCR) NEGATIVE Blood Gas Puncture Site HANS Blood Gas Patient Temperature 98.6 Blood Gas HCO3 20 Blood Gas Base Excess -4.2 Blood Gas Oxygen Saturation 95 Arterial Blood pH 7.36 Arterial Blood Partial 37 Pressure CO2 Arterial Blood Partial 95 Pressure O2 Arterial Blood Oxygen Content 11.5 Arterial Blood 2.0 Carboxyhemoglobin Arterial Blood Methemoglobin 0.9 Blood Gas Hemoglobin 8.5 Oxygen Delivery Device VENTILATOR Blood Gas Ventilator Setting AC14/550/PEEP5 Blood Gas Inspired Oxygen 50 White Blood Count 8.8 Red Blood Count 2.88 Hemoglobin 8.9 Hematocrit 25.2 Mean Corpuscular Volume 87.5 Mean Corpuscular Hemoglobin 30.8 Mean Corpuscular Hemoglobin 35.2 Concent Red Cell Distribution Width 14.8 Platelet Count 83 Mean Platelet Volume 9.1 Neutrophils (%) (Auto) 83.8 Lymphocytes (%) (Auto) 10.5 Monocytes (%) (Auto) 5.6 Eosinophils (%) (Auto) 0.0 Basophils (%) (Auto) 0.1 Neutrophils # (Auto) 7.4 Lymphocytes # (Auto) 0.9 Monocytes # (Auto) 0.5 Eosinophils # (Auto) 0.0 Basophils # (Auto) 0.0 CBC Comment AUTO DIFF Differential Comment AUTO DIFF CONFIRMED Platelet Estimate LOW Platelet Morphology Comment NORMAL Sodium Level 144 Potassium Level 4.6 Chloride Level 111 Carbon Dioxide Level 23.5 Anion Gap 10 Blood Urea Nitrogen 29 Creatinine 1.54 Estimat Glomerular Filtration 44 Rate Random Glucose 113 Calcium Level 6.5 Protein Corrected Calcium 8.2 Phosphorus Level 3.2 Magnesium Level 2.0 Total Bilirubin 0.8 Aspartate Amino Transf 138 (AST/SGOT) Alanine Aminotransferase 123 (ALT/SGPT) Alkaline Phosphatase 28 Total Protein 3.9 Albumin 2.2 Blood Type O POSITIVE Crossmatch Leukocyte-Reduced Red Blood Cells Blood Bank Comment Test 03/13/16 08:15 White Blood Count 10.7 Red Blood Count 3.24 Hemoglobin 10.0 Hematocrit 28.0 Mean Corpuscular Volume 86.2 Mean Corpuscular Hemoglobin 30.9 Mean Corpuscular Hemoglobin 35.9 Concent Red Cell Distribution Width 15.3 Platelet Count 88 Mean Platelet Volume 9.1 Prothrombin Time 13.6 Prothromb Time International 1.2 Ratio Activated Partial 33.4 Thromboplast Time Fibrinogen 298 Radiology Last Impressions Abdomen/Pelvis CT 03/12/16 1310 Signed Impressions: Service Date/Time: Saturday, March 12, 2016 14:37 - CONCLUSION: 1. Large amount of complex fluid seen throughout the abdomen and pelvis suspicious for hemorrhage. 2. There is a large complex mass in the right midabdomen which I suspect is a large hematoma. This is just inferior to the right lobe of the liver. 3. There are 2 benign-appearing hepatic cysts. 4. Status post cholecystectomy. Pop Anderson MD Chest X-Ray 03/12/16 0000 Signed Impressions: Service Date/Time: Saturday, March 12, 2016 13:52 - CONCLUSION: No acute pulmonary infiltrates. Pop Anderson MD Cardiovascular: Regular Lungs: Other (patient on ventilator weaning) Abdomen: Other (LYRIC in place with minimal drainage Port sites mild oozing), Post-op tenderness, BS normal Extremities: Perfused, SCD's on, Other (edema) A/P Problem List: (1) Postoperative hemorrhagic shock (2) Intra abdominal hemorrhage (3) Mechanical heart valve present (4) Drug-induced bleeding disorder Assessment and Plan 80-year-old gentleman with a heart valve underwent a lap Cholecystectomy at outside institution was on anticoagulation developed postoperative bleeding requiring urgent reexploration. Presently stable and hopefully can be weaned off the ventilator Discussed with critical-care team Problem Qualifiers (1) Postoperative hemorrhagic shock: Qualified Code: T81.19XA - Postoperative hemorrhagic shock, initial encounter Harry Simms MD Mar 13, 2016 09:30
[2016-03-13] MEDS ORDERED: CALCIUM GLUCONATE INJ 2 GM in DEXTROSE 5% IN WATER 100ML INJ 100 ML IV ONE ×2 (11:00)
--- NOTE | 2016-03-13 11:21 | HHI.CCPN ---
Subjective Remarks/Hospital Course 72-year-old male with a medical history significant for mechanical aortic valve on anticoagulation who recently underwent cholecystectomy on March 06 at [facility]. He was on Lovenox preoperatively 150 mg every 12 hourly reportedly per family. Following cholecystectomy he required 3 units of PRBCs over the next 2 days and was Admitted at the hospital because of intra- abdominal blood loss and borderline blood pressure and was subsequently discharged on Friday 03/10 and was resumed on Coumadin and Lovenox 75 mg every 12 hourly. He continued to have some dizziness at home following discharge with lightheadedness. This morning patient got worse with increasing lightheadedness and abdominal tightness with increasing distention. He suddenly collapsed and EMS was called - patient was found to be hypotensive and transferred to [facility] ER. He was noted to have a blood pressure of 87 x 45 with heart rate in the 70s on arrival in the ER and appeared extremely pale for documentation. He was found to have free fluid in his abdomen on ultrasound done by ER physician and was diagnosed to have intra-abdominal bleeding. He was given 2 units of O- uncrossmatched blood stat and 1 L of normal saline bolus. Patient was accepted for admission by critical care medicine service and I immediately went to the ER on being notified. As I arrived patient was just being we'll await for CT abdomen pelvis. History is obtained by discussion with patient's family at bedside and subsequently from patient. When I evaluated the patient he was laying on the stretcher. He denied any lightheadedness on laying flat. He denied any chest pain or shortness of breath. He did complain of some abdominal tightness and distention. He had taken a dose of Lovenox 75 mg subcutaneously this morning around 10 AM and had Coumadin last night. He received vitamin K ordered by ER physician. I subsequently ordered protamine 50 mg IV stat after discussion with Dr. Simms who planned to take the patient to the OR. Off note patient did have some abnormal kidney function per family prior to discharge from [place]. His creatinine was 3.3 today on arrival. 03/13: Underwent laparoscopy with evacuation of intra-abdominal hematoma and 500 cc of blood. Subsequently had to be taken back to the OR due to the bleeding from LYRIC and underwent evacuation of hematoma. Patient was Sedated, orally intubated on mechanical ventilation overnight. When I evaluated the patient this morning he is sedated, arousable, orally intubated on mechanical ventilation. LYRIC drain with minimal bloody drainage. He has received total of 6 units PRBCs since his arrival yesterday, 2 of which were preoperatively. Objective Vital Signs Date Time Temp Pulse Resp B/P Pulse Ox O2 Delivery O2 Flow Rate FiO2 03/13/16 08:37 98 40 03/13/16 08:00 98.0 57 16 108/37 03/12/16 22:15 Mechanical Ventilator 03/12/16 19:39 10 Intake and Output 03/12/16 03/12/16 03/13/16 08:00 16:00 00:00 Intake Total 500 ml 5440 ml Output Total 1745 ml Balance 500 ml 3695 ml Result Diagram: 03/13/1615 03/13/16814 Other Results Laboratory Tests Test 03/12/16 03/12/16 03/12/16 03/12/16 13:30 13:40 13:44 20:40 White Blood Count 16.2 TH/MM3 11.2 TH/MM3 Red Blood Count 2.79 MIL/MM3 2.76 MIL/MM3 Hemoglobin 9.0 GM/DL 8.4 GM/DL Hematocrit 26.3 % 25.1 % Mean Corpuscular Volume 94.1 FL 90.8 FL Mean Corpuscular Hemoglobin 32.2 PG 30.4 PG Mean Corpuscular Hemoglobin 34.3 % 33.5 % Concent Red Cell Distribution Width 14.9 % 14.8 % Platelet Count 192 TH/MM3 105 TH/MM3 Mean Platelet Volume 10.0 FL 9.3 FL Neutrophils (%) (Auto) 84.6 % 83.5 % Lymphocytes (%) (Auto) 9.4 % 7.2 % Monocytes (%) (Auto) 5.5 % 9.1 % Eosinophils (%) (Auto) 0.1 % 0.0 % Basophils (%) (Auto) 0.4 % 0.2 % Neutrophils # (Auto) 13.7 TH/MM3 9.3 TH/MM3 Lymphocytes # (Auto) 1.5 TH/MM3 0.8 TH/MM3 Monocytes # (Auto) 0.9 TH/MM3 1.0 TH/MM3 Eosinophils # (Auto) 0.0 TH/MM3 0.0 TH/MM3 Basophils # (Auto) 0.1 TH/MM3 0.0 TH/MM3 CBC Comment DIFF FINAL DIFF FINAL Differential Comment Prothrombin Time 12.6 SEC 13.4 SEC Prothromb Time International 1.1 RATIO 1.2 RATIO Ratio Urine Color YELLOW Urine Turbidity CLEAR Urine pH 5.5 Urine Specific [place] 1.018 Urine Protein TRACE mg/dL Urine Glucose (UA) NEG mg/dL Urine Ketones NEG mg/dL Urine Occult Blood NEG Urine Nitrite NEG Urine Bilirubin NEG Urine Urobilinogen LESS THAN 2.0 MG/DL Urine Leukocyte Esterase SMALL Urine RBC 4 /hpf Urine WBC 2 /hpf Urine Squamous Epithelial <1 /hpf Cells Urine Bacteria RARE /hpf Urine Hyaline Casts 1 /lpf Urine Mucus MOD /lpf Microscopic Urinalysis Comment CULT NOT INDICATED Sodium Level 137 MEQ/L Potassium Level 4.7 MEQ/L Chloride Level 101 MEQ/L Carbon Dioxide Level 24.0 MEQ/L Anion Gap 12 MEQ/L Blood Urea Nitrogen 34 MG/DL Creatinine 3.05 MG/DL Estimat Glomerular Filtration 20 ML/MIN Rate Random Glucose 217 MG/DL Calcium Level 8.5 MG/DL Total Bilirubin 0.6 MG/DL Aspartate Amino Transf 43 U/L (AST/SGOT) Alanine Aminotransferase 49 U/L (ALT/SGPT) Alkaline Phosphatase 45 U/L Total Protein 5.6 GM/DL Albumin 3.0 GM/DL Blood Type O POSITIVE O POSITIVE Antibody Screen NEGATIVE Crossmatch Leukocyte-Reduced Leukocyte-Reduced Red Blood Red Blood Cells Cells Blood Bank Comment Activated Partial 36.2 SEC Thromboplast Time Test 03/12/16 03/13/16 03/13/16 03/13/16 22:35 01:32 01:40 02:42 Nasal Screen MRSA (PCR) NEGATIVE Blood Gas Puncture Site HANS Blood Gas Patient Temperature 98.6 Blood Gas HCO3 20 mmol/L Blood Gas Base Excess -4.2 mmol/L Blood Gas Oxygen Saturation 95 % Arterial Blood pH 7.36 Arterial Blood Partial 37 mmHg Pressure CO2 Arterial Blood Partial 95 mmHg Pressure O2 Arterial Blood Oxygen Content 11.5 Vol % Arterial Blood 2.0 % Carboxyhemoglobin Arterial Blood Methemoglobin 0.9 % Blood Gas Hemoglobin 8.5 G/DL Oxygen Delivery Device VENTILATOR Blood Gas Ventilator Setting AC14/550/PEEP5 Blood Gas Inspired Oxygen 50 % White Blood Count 8.8 TH/MM3 Red Blood Count 2.88 MIL/MM3 Hemoglobin 8.9 GM/DL Hematocrit 25.2 % Mean Corpuscular Volume 87.5 FL Mean Corpuscular Hemoglobin 30.8 PG Mean Corpuscular Hemoglobin 35.2 % Concent Red Cell Distribution Width 14.8 % Platelet Count 83 TH/MM3 Mean Platelet Volume 9.1 FL Neutrophils (%) (Auto) 83.8 % Lymphocytes (%) (Auto) 10.5 % Monocytes (%) (Auto) 5.6 % Eosinophils (%) (Auto) 0.0 % Basophils (%) (Auto) 0.1 % Neutrophils # (Auto) 7.4 TH/MM3 Lymphocytes # (Auto) 0.9 TH/MM3 Monocytes # (Auto) 0.5 TH/MM3 Eosinophils # (Auto) 0.0 TH/MM3 Basophils # (Auto) 0.0 TH/MM3 CBC Comment AUTO DIFF Differential Comment AUTO DIFF CONFIRMED Platelet Estimate LOW Platelet Morphology Comment NORMAL Sodium Level 144 MEQ/L Potassium Level 4.6 MEQ/L Chloride Level 111 MEQ/L Carbon Dioxide Level 23.5 MEQ/L Anion Gap 10 MEQ/L Blood Urea Nitrogen 29 MG/DL Creatinine 1.54 MG/DL Estimat Glomerular Filtration 44 ML/MIN Rate Random Glucose 113 MG/DL Calcium Level 6.5 MG/DL Protein Corrected Calcium 8.2 MG/DL Phosphorus Level 3.2 MG/DL Magnesium Level 2.0 MG/DL Total Bilirubin 0.8 MG/DL Aspartate Amino Transf 138 U/L (AST/SGOT) Alanine Aminotransferase 123 U/L (ALT/SGPT) Alkaline Phosphatase 28 U/L Total Protein 3.9 GM/DL Albumin 2.2 GM/DL Blood Type O POSITIVE Crossmatch Leukocyte-Reduced Red Blood Cells Blood Bank Comment Test 03/13/16 08:15 White Blood Count 10.7 TH/MM3 Red Blood Count 3.24 MIL/MM3 Hemoglobin 10.0 GM/DL Hematocrit 28.0 % Mean Corpuscular Volume 86.2 FL Mean Corpuscular Hemoglobin 30.9 PG Mean Corpuscular Hemoglobin 35.9 % Concent Red Cell Distribution Width 15.3 % Platelet Count 88 TH/MM3 Mean Platelet Volume 9.1 FL Prothrombin Time 13.6 SEC Prothromb Time International 1.2 RATIO Ratio Activated Partial 33.4 SEC Thromboplast Time Fibrinogen 298 mg/dL Sodium Level 142 MEQ/L Potassium Level 4.8 MEQ/L Chloride Level 112 MEQ/L Carbon Dioxide Level 23.5 MEQ/L Anion Gap 7 MEQ/L Blood Urea Nitrogen 28 MG/DL Creatinine 1.33 MG/DL Estimat Glomerular Filtration 52 ML/MIN Rate Random Glucose 110 MG/DL Calcium Level 6.2 MG/DL Protein Corrected Calcium 7.7 MG/DL Total Bilirubin 0.6 MG/DL Aspartate Amino Transf 139 U/L (AST/SGOT) Alanine Aminotransferase 113 U/L (ALT/SGPT) Alkaline Phosphatase 36 U/L Total Protein 4.1 GM/DL Albumin 2.0 GM/DL Imaging Last Impressions Abdomen/Pelvis CT 03/12/16 1310 Signed Impressions: Service Date/Time: Saturday, March 12, 2016 14:37 - CONCLUSION: 1. Large amount of complex fluid seen throughout the abdomen and pelvis suspicious for hemorrhage. 2. There is a large complex mass in the right midabdomen which I suspect is a large hematoma. This is just inferior to the right lobe of the liver. 3. There are 2 benign-appearing hepatic cysts. 4. Status post cholecystectomy. Pop Anderson MD Chest X-Ray 03/12/16 0000 Signed Impressions: Service Date/Time: Saturday, March 12, 2016 13:52 - CONCLUSION: No acute pulmonary infiltrates. Pop Anderson MD Objective Remarks Narrative GENERAL: Awake, alert, elderly male laying flat in ER stretcher SKIN: Warm and dry. Pale HEENT/ Neuro: Sedated, orally intubated, Pallor present, no icterus, tongue/ mucosa moist Neck: No JVD Chest/Pulm: on mech vent, good air entry bilaterally, no wheezing or crackles CVS: S1-S2 regular, no murmur GI/abdomen: soft, distended, nontender, bowel sounds not appreciated, dressing or laparoscopy port sites. A LYRIC drain in place with minimal bloody drainage. Extremities: warm bilaterally, no edema Urinary Catheter: Yes Assessment to: Continue A/P Assessment and Plan 80-year-old male with: Acute blood loss anemia Intra-abdominal bleeding hemorrhagic shock Acute kidney injury Hyperglycemia Recent laparoscopic cholecystectomy Hyperlipidemia Hypertension Plan: Neuro: Follow neuro status. Morphine when necessary for pain. [place] when necessary when cleared for by mouth. Propofol for sedation while intubated, daily sedation vacation Cardiovascular: Aggressive fluid resuscitation. Status post 6 units PRBCs. Continue maintenance IV fluids. Anticoagulation reversed with Protamine 50 mg IV on 03/12 . Vitamin K, FFP ordered by ER physician. Cardiology consulted for mechanical aortic valve as patient is now off anticoagulation for bleeding intra -abdominally and s/p surgical drainage. Pulmonary: On mechanical ventilation, vent bundle, bronchodilators as needed. Initiate daily C Pap trials to decide extubation. GI/liver: Status post recent cholecystectomy with subsequent intra-abdominal bleeding. Keep nothing by mouth. S/p laparoscopy and evacuation of intra- abdominal hematoma. Renal/: IV hydration, strict intake output, monitor and replete electrolytes, follow BUN/creatinine. ID: Perioperative antibiotic prophylaxis per Dr. Simms Heme: Follow CBC. Lovenox and Coumadin to be held currently. Vitamin K/ FFP and protamine given on 03/12 to reverse Coumadin and Lovenox prior to exploration by Dr. Simms. Transfuse to keep hemoglobin above 8 g percent. Received 6 units PRBCs so far. Endocrine: Watch for hyperglycemia. SSI for glycemic control Prophylaxis: PPI/SCDs. Start subcutaneous heparin/Lovenox when okay with Dr. Simms for DVT prophylaxis and eventually will need full anticoagulation for mechanical aortic valve. Condition critical. Time spent on critical care excluding procedures 35 minutes Popeye Noriega MD Mar 13, 2016 11:21
[2016-03-13 16:15] LABS: HEMATOCRIT 31.8 % (39.0-51.0); MEAN CELL VOLUME 88.6 FL (80.0-100.0); MEAN CORPUSCULAR HEMOGLOBIN 29.9 PG (27.0-34.0); MEAN CORPUSCULAR HGB CONC 33.7 % (32.0-36.0); PLATELET COUNT 98 TH/MM3 (150-450); RED BLOOD COUNT 3.59 MIL/MM3 (4.50-5.90); RED CELL DISTRIBUTION WIDTH 15.7 % (11.6-17.2); WHITE BLOOD COUNT 12.1 TH/MM3 (4.0-11.0)
[2016-03-13 16:17] LABS: REVIEW FLAG FINAL
[2016-03-13] MEDS: SODIUM CHLORIDE 0.9% FLUSH 5 ML FLUSH IV FLUSH SCH (21:00)
[2016-03-13] MEDS ORDERED: ZOLPIDEM TARTRATE 5 MG TAB PO ONE (22:15)
[2016-03-14] VITALS (11 sets, daily range): BP systolic 112–142; BP diastolic 53–63; PULSE 55–65; RESP 12–23; TEMP 97.3–100.4; O2SAT 92–98
[2016-03-14] MEDS: CHLORHEXIDINE GLUCONATE 2 % 1 PACK (2 CLOTHS) TOP SCH (04:00)
[2016-03-14 04:48] LABS: AUTOMATED NEUTROPHIL # 7.6 TH/MM3 (1.8-7.7); BASOPHIL % 0.2 % (0.0-2.0); EOSINOPHIL # 0.1 TH/MM3 (0-0.4); EOSINOPHIL % 0.9 % (0.0-4.0); HEMATOCRIT 26.2 % (39.0-51.0); LYMPH % 12.2 % (9.0-44.0); LYMPHOCYTE # 1.2 TH/MM3 (1.0-4.8); MEAN CORPUSCULAR HEMOGLOBIN 31.1 PG (27.0-34.0); MEAN CORPUSCULAR HGB CONC 35.8 % (32.0-36.0); MONO % 8.2 % (0.0-8.0); NEUT % 78.5 % (16.0-70.0); PLATELET COUNT 93 TH/MM3 (150-450); RED BLOOD COUNT 3.02 MIL/MM3 (4.50-5.90); RED CELL DISTRIBUTION WIDTH 15.6 % (11.6-17.2); WHITE BLOOD COUNT 9.7 TH/MM3 (4.0-11.0)
[2016-03-14 05:01] LABS: BICARBONATE 25.7 MEQ/L (21.0-32.0); POTASSIUM 4.2 MEQ/L (3.5-5.1)
[2016-03-14 05:03] LABS: CALCIUM-PROTEIN CORRECTED 9.1 MG/DL (8.5-10.1); TOTAL BILIRUBIN ADULT 0.5 MG/DL (0.2-1.0)
[2016-03-14 05:15] LABS: HEMO FLAGS AUTO DIFF
[2016-03-14] MEDS: INSULIN ASPART SUPPLEMENTAL SCALE SQ SCH (06:00)
[2016-03-14 07:28] LABS: PLATELET ESTIMATE SMEAR LOW (NORMAL); PLATELET MORPHOLOGY NORMAL (NORMAL); SCAN/DIFF AUTO DIFF CONFIRMED
[2016-03-14] MEDS: PANTOPRAZOLE SODIUM 40 MG VIAL IV SCH (07:49)
[2016-03-14] MEDS: SODIUM CHLORIDE 0.9% FLUSH 5 ML FLUSH IV FLUSH SCH ×2 (07:49→20:28)
[2016-03-14] MEDS: SODIUM CHLOR 0.9% 1000 ML INJ 1,000 ML IV SCH (09:35)
--- NOTE | 2016-03-14 10:03 | HHI.PR ---
Subjective Subjective Notes DAILY PROGRESS NOTE FOR SURGICAL ATTENDING, DR. STUART SIMMS Up in bed eating regular diet Objective Vitals/I&O Vital Signs Date Time Temp Pulse Resp B/P Pulse Ox O2 Delivery O2 Flow Rate FiO2 03/14/16 08:00 98.5 58 12 121/60 96 03/14/16 07:29 Nasal Cannula 2.00 03/13/16 12:50 40 Labs Laboratory Tests Test 03/13/16 03/14/16 15:55 04:14 White Blood Count 12.1 9.7 Red Blood Count 3.59 3.02 Hemoglobin 10.7 9.4 Hematocrit 31.8 26.2 Mean Corpuscular Volume 88.6 87.0 Mean Corpuscular Hemoglobin 29.9 31.1 Mean Corpuscular Hemoglobin 33.7 35.8 Concent Red Cell Distribution Width 15.7 15.6 Platelet Count 98 93 Mean Platelet Volume 9.2 9.0 Neutrophils (%) (Auto) 78.5 Lymphocytes (%) (Auto) 12.2 Monocytes (%) (Auto) 8.2 Eosinophils (%) (Auto) 0.9 Basophils (%) (Auto) 0.2 Neutrophils # (Auto) 7.6 Lymphocytes # (Auto) 1.2 Monocytes # (Auto) 0.8 Eosinophils # (Auto) 0.1 Basophils # (Auto) 0.0 CBC Comment AUTO DIFF Differential Comment AUTO DIFF CONFIRMED Platelet Estimate LOW Platelet Morphology Comment NORMAL Sodium Level 143 Potassium Level 4.2 Chloride Level 111 Carbon Dioxide Level 25.7 Anion Gap 6 Blood Urea Nitrogen 21 Creatinine 1.07 Estimat Glomerular Filtration 67 Rate Random Glucose 87 Calcium Level 7.4 Protein Corrected Calcium 9.1 Total Bilirubin 0.5 Aspartate Amino Transf 88 (AST/SGOT) Alanine Aminotransferase 93 (ALT/SGPT) Alkaline Phosphatase 32 Total Protein 4.2 Albumin 2.2 Radiology Last Impressions Abdomen/Pelvis CT 03/12/16 1310 Signed Impressions: Service Date/Time: Saturday, March 12, 2016 14:37 - CONCLUSION: 1. Large amount of complex fluid seen throughout the abdomen and pelvis suspicious for hemorrhage. 2. There is a large complex mass in the right midabdomen which I suspect is a large hematoma. This is just inferior to the right lobe of the liver. 3. There are 2 benign-appearing hepatic cysts. 4. Status post cholecystectomy. Pop Anderson MD Chest X-Ray 03/12/16 0000 Signed Impressions: Service Date/Time: Saturday, March 12, 2016 13:52 - CONCLUSION: No acute pulmonary infiltrates. Pop Anderson MD Cardiovascular: Regular Lungs: Clear Abdomen: Non-distended, Other (LYRIC in place with serosanguineous), Post-op tenderness Extremities: No edema, Perfused A/P Problem List: (1) Postoperative hemorrhagic shock (2) Intra abdominal hemorrhage (3) Mechanical heart valve present (4) Drug-induced bleeding disorder (5) Status post laparoscopic cholecystectomy Assessment and Plan 80-year-old gentleman with a heart valve underwent a lap Cholecystectomy at outside institution was on anticoagulation developed postoperative bleeding requiring urgent reexploration. Presently stable Restart home meds except antihypertensive and Coumadin Discussed with critical-care team Remove Land transfer to floor Problem Qualifiers (1) Postoperative hemorrhagic shock: Qualified Code: T81.19XD - Postoperative hemorrhagic shock, subsequent encounter Stuart Simms MD Mar 14, 2016 10:03
--- NOTE | 2016-03-14 17:27 | HHI.PR ---
Subjective Remarks patient experienced some abdominal discomfort more of "bloating" sensation + flatus but has had no BM he is up and ambulating around his bed- no dizziness or lightheadedness Objective Vitals Vital Signs Date Time Temp Pulse Resp B/P Pulse Ox O2 Delivery O2 Flow Rate FiO2 03/14/16 16:00 97.3 55 19 142/63 92 03/14/16 12:00 98.0 65 15 130/60 95 03/14/16 10:00 59 03/14/16 08:00 98.5 58 12 121/60 96 03/14/16 08:00 58 03/14/16 07:29 94 Nasal Cannula 2.00 03/14/16 07:00 100 Nasal Cannula 2.00 03/14/16 06:00 58 03/14/16 04:00 60 03/14/16 04:00 98.8 60 23 126/60 93 03/14/16 02:00 55 03/14/16 00:00 99.8 62 17 112/53 98 03/14/16 00:00 62 03/13/16 22:00 64 03/13/16 20:37 98 Nasal Cannula 3.00 03/13/16 20:00 100.0 62 17 113/56 100 03/13/16 20:00 100 Nasal Cannula 2.00 03/13/16 20:00 62 I/O 03/13/16 03/13/16 03/13/16 03/14/16 03/14/16 03/14/16 07:00 15:00 23:00 07:00 15:00 23:00 Intake Total 2279 ml 1540 ml 2947 ml 528 ml 900 ml Output Total 790 ml 710 ml 780 ml 965 ml 50 ml Balance 1489 ml 830 ml 2167 ml -437 ml 850 ml Intake Oral 600 ml IV Total 1779 ml 1540 ml 2947 ml 528 ml 300 ml Packed Cells 500 ml Output Urine Total 700 ml 650 ml 650 ml 850 ml Stool Total 0 ml 0 ml 0 ml Drainage Total 90 ml 60 ml 130 ml 115 ml 50 ml # Voids 1 Result Diagram: 03/14/16 0414 03/14/16 0414 Imaging Last Impressions Abdomen/Pelvis CT 03/12/16 1310 Signed Impressions: Service Date/Time: Saturday, March 12, 2016 14:37 - CONCLUSION: 1. Large amount of complex fluid seen throughout the abdomen and pelvis suspicious for hemorrhage. 2. There is a large complex mass in the right midabdomen which I suspect is a large hematoma. This is just inferior to the right lobe of the liver. 3. There are 2 benign-appearing hepatic cysts. 4. Status post cholecystectomy. Pop Anderson MD Chest X-Ray 03/12/16 0000 Signed Impressions: Service Date/Time: Saturday, March 12, 2016 13:52 - CONCLUSION: No acute pulmonary infiltrates. Pop Anderson MD Objective Remarks awake and alert, oriented x 3 anicteric lungs decreased breath sounds, no rales regular rhythm, + systolic click abdomen- distended but soft, few bowel sounds, LYRIC bulb with bright red blood extremities + edema A/P Assessment and Plan 80-year-old male with: History of mechanical heart valve underwent laparoscopic cholecystectomy S/P Hemorrhagic shock from Acute Intraabdominal bleeding from recent laparoscopic cholecystectomy 03/06 Shock Liver- LFTs trending down - S/P 6 units RBC continue to monitor H and H - patient clinically up and ambulating around his room slowly- no complains of dizziness - Anticoagulation reversed with Protamine 50 mg IV on 03/12 . Vitamin K, FFP ordered by ER physician. - Cardiology consulted for mechanical aortic valve as patient is now off anticoagulation for bleeding intra-abdominally and s/p surgical drainage. - General surgery ff along with us closely History of mechanical heart valve history of hypertension - BP meds DC due to above - OAC/coumadin on hold due to post op bleeding with hematoma formation - needs to be restarted eventually - will monitor abdomen/H and H closely - cardiology ff along with us S/P Acute kidney injury - resolved. DC IVF - continue to monitor BMP Hyperglycemia - ff - likely reactive Hyperlipidemia Prophylaxis: PPI/SCDs. - patient ambulating eventually will need full anticoagulation for mechanical aortic valve. Cathryn Gee MD Mar 14, 2016 17:27 Cathryn Gee MD Mar 14, 2016 17:27
[2016-03-14] MEDS: PRAVASTATIN SOD 80 MG TAB PO SCH (20:28)
[2016-03-15] VITALS (7 sets, daily range): BP systolic 108–131; BP diastolic 53–61; PULSE 51–84; RESP 17–22; TEMP 96.8–99.3; O2SAT 90–96
[2016-03-15] MEDS: CHLORHEXIDINE GLUCONATE 2 % 1 PACK (2 CLOTHS) TOP SCH (04:00)
[2016-03-15 06:44] LABS: HEMATOCRIT 30.4 % (39.0-51.0); MEAN CELL VOLUME 88.9 FL (80.0-100.0); MEAN CORPUSCULAR HEMOGLOBIN 30.3 PG (27.0-34.0); PLATELET COUNT 138 TH/MM3 (150-450); RED BLOOD COUNT 3.42 MIL/MM3 (4.50-5.90); RED CELL DISTRIBUTION WIDTH 14.9 % (11.6-17.2); REVIEW FLAG FINAL
[2016-03-15 07:08] LABS: POTASSIUM 3.8 MEQ/L (3.5-5.1)
[2016-03-15] MEDS: PANTOPRAZOLE SOD 20 MG DELAYED RELEASE TAB PO SCH (07:54)
[2016-03-15] MEDS: SODIUM CHLORIDE 0.9% FLUSH 5 ML FLUSH IV FLUSH SCH ×2 (07:54→19:34)
--- NOTE | 2016-03-15 08:29 | HHI.PR ---
Subjective Remarks tolerating diet- no nausea or vomiting "food is bland" no abdominal pain "growling" had a small "tiny" bowel movement last evening Objective Vitals Vital Signs Date Time Temp Pulse Resp B/P Pulse Ox O2 Delivery O2 Flow Rate FiO2 03/15/16 04:00 98.9 57 22 129/61 96 03/15/16 01:36 96 Nasal Cannula 21 03/14/16 23:47 99.6 59 20 116/56 94 03/14/16 20:00 100.4 60 18 115/56 93 03/14/16 16:00 97.3 55 19 142/63 92 03/14/16 12:00 98.0 65 15 130/60 95 03/14/16 10:00 59 I/O 03/14/16 03/14/16 03/14/16 03/15/16 03/15/16 03/15/16 07:00 15:00 23:00 07:00 15:00 23:00 Intake Total 528 ml 900 ml 240 ml 240 ml Output Total 965 ml 50 ml 125 ml 445 ml Balance -437 ml 850 ml 115 ml -205 ml Intake Oral 600 ml 240 ml 240 ml IV Total 528 ml 300 ml Output Urine Total 850 ml 100 ml 400 ml Stool Total 0 ml Drainage Total 115 ml 50 ml 25 ml 45 ml # Voids 1 1 # Bowel Movements 1 0 Result Diagram: 03/15/16 0540 03/15/16 0540 Imaging Last Impressions Abdomen/Pelvis CT 03/12/16 1310 Signed Impressions: Service Date/Time: Saturday, March 12, 2016 14:37 - CONCLUSION: 1. Large amount of complex fluid seen throughout the abdomen and pelvis suspicious for hemorrhage. 2. There is a large complex mass in the right midabdomen which I suspect is a large hematoma. This is just inferior to the right lobe of the liver. 3. There are 2 benign-appearing hepatic cysts. 4. Status post cholecystectomy. Pop Anderson MD Chest X-Ray 03/12/16 0000 Signed Impressions: Service Date/Time: Saturday, March 12, 2016 13:52 - CONCLUSION: No acute pulmonary infiltrates. Pop Anderson MD Objective Remarks awake and alert, oriented x 3 anicteric lungs decreased breath sounds, no rales regular rhythm, + systolic click abdomen- distended but soft, few bowel sounds, LYRIC bulb with bright red blood extremities trace pretibial edema neuro exam- unremarkable Date of Removal: Mar 14, 2016 A/P Assessment and Plan 80-year-old male with: History of mechanical heart valve underwent laparoscopic cholecystectomy S/P Hemorrhagic shock from Acute Intraabdominal bleeding from recent laparoscopic cholecystectomy 03/06 Shock Liver- LFTs trending down - S/P 6 units RBC continue to monitor H and H - patient clinically up and ambulating around his room slowly- no complains of dizziness - Anticoagulation reversed with Protamine 50 mg IV on 03/12 . Vitamin K, FFP given on admissiion - General surgery ff along with us closely - H and H stable History of mechanical heart valve history of hypertension - BP meds DC due to above - OAC/coumadin on hold due to post op bleeding with hematoma formation - needs to be restarted eventually - will monitor abdomen/H and H closely - Dr. Webster - cardiology ff along with us S/P Acute kidney injury - resolved. - voiding well- dumas DC 03/14 Hyperglycemia - ff - likely reactive Hyperlipidemia- on statins- restarted- =check hepatic panel Prophylaxis: PPI/SCDs. - patient up and ambulating Incentive spirometry hourly eventually will need full anticoagulation for mechanical aortic valve. Cathryn Gee MD Mar 15, 2016 08:29
--- NOTE | 2016-03-15 08:51 | HHI.PR ---
Subjective Subjective Notes DAILY PROGRESS NOTE FOR SURGICAL ATTENDING, DR. HARRY SIMMS Up to chair Reports zero pain Waiting on breakfast Objective Vitals/I&O Vital Signs Date Time Temp Pulse Resp B/P Pulse Ox O2 Delivery O2 Flow Rate FiO2 03/15/16 08:00 98.1 51 17 121/60 95 03/15/16 01:36 Nasal Cannula 21 03/14/16 07:29 2.00 Labs Laboratory Tests Test 03/15/16 05:40 White Blood Count 13.0 Red Blood Count 3.42 Hemoglobin 10.3 Hematocrit 30.4 Mean Corpuscular Volume 88.9 Mean Corpuscular Hemoglobin 30.3 Mean Corpuscular Hemoglobin 34.0 Concent Red Cell Distribution Width 14.9 Platelet Count 138 Mean Platelet Volume 9.1 Sodium Level 142 Potassium Level 3.8 Chloride Level 107 Carbon Dioxide Level 27.0 Anion Gap 8 Blood Urea Nitrogen 19 Creatinine 1.03 Estimat Glomerular Filtration 70 Rate Random Glucose 87 Calcium Level 7.8 Radiology Last Impressions Abdomen/Pelvis CT 03/12/16 1310 Signed Impressions: Service Date/Time: Saturday, March 12, 2016 14:37 - CONCLUSION: 1. Large amount of complex fluid seen throughout the abdomen and pelvis suspicious for hemorrhage. 2. There is a large complex mass in the right midabdomen which I suspect is a large hematoma. This is just inferior to the right lobe of the liver. 3. There are 2 benign-appearing hepatic cysts. 4. Status post cholecystectomy. Pop Anderson MD Chest X-Ray 03/12/16 0000 Signed Impressions: Service Date/Time: Saturday, March 12, 2016 13:52 - CONCLUSION: No acute pulmonary infiltrates. Pop Anderson MD Cardiovascular: Regular Lungs: Clear Abdomen: Other (incision with sutures----no drainage; LYRIC with SS drainage-- minimal drainage at skin) Extremities: No edema A/P Problem List: (1) Postoperative hemorrhagic shock (2) Intra abdominal hemorrhage (3) Mechanical heart valve present (4) Drug-induced bleeding disorder (5) Status post laparoscopic cholecystectomy Assessment and Plan 80 year old male POD3 exlap for intraabdominal hemorrhage s/p Cholecystectomy at outside institution -Hmg stable -OOB and mobilize -IS ordered -Tolerating regular diet -Shanda viramontes Attending Statement NOTE FOR SURGICAL ATTENDING, DR. HARRY SIMMS I agree with above assessment and plan. The exam, history, and the medical decision-making described in the above note were completed with the assistance of the mid-level provider. I reviewed and agree with the findings presented. I attest that I had a [id number] encounter with the patient on the same day, and personally performed and documented my assessment and findings in the medical record. The following services were provided during this hospital visit: Chart data review, vital sign assessments/reviewing monitor data Review of consultations notes if present. Medication orders/review and/or management Ordering and/or reviewing lab tests Ordering and/or interpreting/reviewing x-rays and/or diagnostic studies Care of the patient and discussion of the patient with the care team Documentation time To help prompt me to consider important information that might be impacting today's encounter and assessment, information from prior notes written by myself or my colleagues may have been "brought forward/copy and pasted" into today's note. Problem Qualifiers (1) Postoperative hemorrhagic shock: Qualified Code: T81.19XD - Postoperative hemorrhagic shock, subsequent encounter Flori Stokes Mar 15, 2016 08:51 Harry Simms MD Mar 15, 2016 11:16
[2016-03-15 09:38] LABS: INDIRECT BILIRUBIN 0.5 MG/DL (0.0-0.8); TOTAL BILIRUBIN ADULT 0.7 MG/DL (0.2-1.0)
[2016-03-15] MEDS: PRAVASTATIN SOD 80 MG TAB PO SCH (19:34)
[2016-03-16] VITALS: BP 134/61; PULSE 65; RESP 18; TEMP 100.2; O2SAT 93
[2016-03-16] MEDS: CHLORHEXIDINE GLUCONATE 2 % 1 PACK (2 CLOTHS) TOP SCH (04:00)
[2016-03-16] MEDS: ACETAMINOPHEN/HYDROcodone 325 MG/5 MG TAB PO PRN ×2 (04:41→23:31)
[2016-03-16 08:00] VITALS: BP 115/58; PULSE 53; RESP 17; TEMP 98.3; O2SAT 91
[2016-03-16] MEDS: SODIUM CHLORIDE 0.9% FLUSH 5 ML FLUSH IV FLUSH SCH ×2 (08:05→21:00)
[2016-03-16] MEDS: PANTOPRAZOLE SOD 20 MG DELAYED RELEASE TAB PO SCH (08:05)
--- NOTE | 2016-03-16 09:05 | MP ---
cc: HARRY SIMMS DATE OF SURGERY: 03/12/2016 PREOPERATIVE DIAGNOSIS Intra-abdominal hemorrhage with hypotension secondary to previous surgery and coagulopathy. POSTOPERATIVE DIAGNOSIS Intra-abdominal hemorrhage with hypotension secondary to previous surgery and coagulopathy. PROCEDURE Diagnostic laparoscopy with removal of large hematoma and a large amount of blood, a little bit more than 500 ccs approximately with stopping bleeding at the liver edge. Placement of Jeffrey-Callahan drain in the gallbladder fossa. INDICATIONS This is a elderly gentleman who had undergone a cholecystectomy a week ago. He has a heart valve and was placed on anticoagulation. He was discharged home and then he became hypotensive and dizzy, was brought to our emergency room separate from where he had his surgery done and he requires urgent exploration. PROCEDURE The patient was taken to the operating room, placed in the supine position, after endotracheal anesthesia his abdomen was prepped with Betadine. We make an incision just at the previous incision above the umbilicus. A 10 mm trocar was introduced. A fair amount of blood is seen. Three other working ports were placed at the old port sites, one under the xyphoid, one under the subcostal area and one out laterally. There is fair amount of blood which is evacuated out with using combination of suction and placed in the EndoCatch because there was too much clot to be sucked up through the sucking device and would clog it up. We used three EndoCatch to grasp the largest portions of the hematomas and then placed them in EndoCatch and pulled it out through the umbilicus incision. We are able to dissect and visualize the gallbladder fossa. There was one little small bleeding edge. This was stopped with electrocautery device. No other active bleeding is noted. All the hematoma around the liver and underneath the liver is evacuated. Old blood in the pelvis is evacuated as well. It is noted that he has bilateral inguinal hernias. After we completely evacuate as much of the hematoma as possible and old blood, although some is mixed in and stain the omentum which is not removed. I see no gross active bleeding. Because of his need to be on anticoagulation because of his heart valve, I did place some Azam along the liver edge that was raw but non-bleeding and hopefully he will not start bleeding once he is put back on his anticoagulation. We then placed a LYRIC in the area because of the amount of irrigant we used, we used 9 liters. This was brought out through the port site in the lateral flank and secured to the skin with a 3-0 Nylon. The trocars were then all removed. The irrigating solution was removed. We then closed the fascial layer with 0 Vicryl at the umbilicus and skin is closed with 4-0 Vicryl. Steri-Strips were applied. Sterile bandage was applied. The patient tolerated the procedure well with no immediate postop complications. Harry Simms MD JDB/TLL /7:27 PM /8:49 AM
--- NOTE | 2016-03-16 09:41 | MP ---
cc: STUART HRER M.D. DATE OF SURGERY 03/12/2016 PREOPERATIVE DIAGNOSIS Questionable recurrent bleeding from the liver POSTOPERATIVE DIAGNOSIS Questionable recurrent bleeding from the liver PROCEDURE Diagnostic laparoscopy with evacuation of fluid, reevaluation of previous surgery site at the liver. HISTORY This is a 80-year-old gentleman who had a laparoscopic cholecystectomy at another hospital. He was on anticoagulation. He bled postoperatively. He showed up in the emergency room hypertensive here. I just operated on him. He had a drain in place in the recovery room. After her was extubated, he was coughing there was a fair amount of what the nurses felt was new bloody drainage from the port sites and from the LYRIC. Anesthesia was very concerned so for this reason, he was brought back to the operating room for reevaluation. PROCEDURE The patient was in the operating room. He has been reintubated. His abdomen is prepped. He has a LYRIC in which was prepped in the field. We placed our 10 mm trocar at the umbilicus and a 5 which was converted to a 10 just below the xyphoid and the other 5 mm port in the subcostal region. We re-insufflate the abdomen. A small amount of bloody fluid is seen which is evacuated. The liver is evaluated again. There is a fair amount of hemostasis. Because of the concern and his anticoagulation, we did place the coagulant snow along the gallbladder fossa and where there was a little abrasion to the liver itself. No active bleeding was seen. We irrigate with 3 liters of fluid. I see no active bleeding. He does just have still some old blood clot that is interspersed in the omentum and portions of the large bowel, but no keagan new blood. All the irrigating solution is removing as much as possible even over the spleen. The LYRIC is placed in the gallbladder fossa and the trocars are removed. The fascial closure is accomplished with a 0 Vicryl at the 10 mm port site. The skin is closed with a nylon suture. I did discuss this with the family both operative findings. MD SAYDA Alanis/ARLENE /11:00 PM /9:23 AM
--- NOTE | 2016-03-16 11:58 | HHI.PR ---
Subjective Subjective Notes DAILY PROGRESS NOTE FOR SURGICAL ATTENDING, DR. HARRY SIMMS Up to chair; feels weak Objective Vitals/I&O Vital Signs Date Time Temp Pulse Resp B/P Pulse Ox O2 Delivery O2 Flow Rate FiO2 03/16/16 09:15 Nasal Cannula 03/16/16 08:00 98.3 53 17 115/58 91 03/15/16 22:17 21 03/14/16 07:29 2.00 Radiology Last Impressions Abdomen/Pelvis CT 03/12/16 1310 Signed Impressions: Service Date/Time: Saturday, March 12, 2016 14:37 - CONCLUSION: 1. Large amount of complex fluid seen throughout the abdomen and pelvis suspicious for hemorrhage. 2. There is a large complex mass in the right midabdomen which I suspect is a large hematoma. This is just inferior to the right lobe of the liver. 3. There are 2 benign-appearing hepatic cysts. 4. Status post cholecystectomy. Pop Anderson MD Chest X-Ray 03/12/16 0000 Signed Impressions: Service Date/Time: Saturday, March 12, 2016 13:52 - CONCLUSION: No acute pulmonary infiltrates. Pop Anderson MD Cardiovascular: Regular Lungs: Clear Abdomen: Other (incision sutured-- no drainage; LYRIC skin site has leaking ) Extremities: No edema A/P Problem List: (1) Postoperative hemorrhagic shock (2) Intra abdominal hemorrhage (3) Mechanical heart valve present (4) Drug-induced bleeding disorder (5) Status post laparoscopic cholecystectomy Assessment and Plan 80 year old male POD4 exlap for intraabdominal hemorrhage s/p Cholecystectomy at outside institution -[facility] stable -Labs in the AM -OOB and mobilize; PT ordered -IS -Tolerating regular diet -Okay to restart anticoagulation from GS standpoint -Cardiology following Attending Statement NOTE FOR SURGICAL ATTENDING, DR. HARRY SIMMS I agree with above assessment and plan. Plan to start anticoagulation Keep LYRIC in place for now The exam, history, and the medical decision-making described in the above note were completed with the assistance of the mid-level provider. I reviewed and agree with the findings presented. I attest that I had a [id number] encounter with the patient on the same day, and personally performed and documented my assessment and findings in the medical record. The following services were provided during this hospital visit: Chart data review, vital sign assessments/reviewing monitor data Review of consultations notes if present. Medication orders/review and/or management Ordering and/or reviewing lab tests Ordering and/or interpreting/reviewing x-rays and/or diagnostic studies Care of the patient and discussion of the patient with the care team Documentation time To help prompt me to consider important information that might be impacting today's encounter and assessment, information from prior notes written by myself or my colleagues may have been "brought forward/copy and pasted" into today's note. Problem Qualifiers (1) Postoperative hemorrhagic shock: Qualified Code: T81.19XA - Postoperative hemorrhagic shock, initial encounter Flori Stokes Mar 16, 2016 11:58 Harry Simms MD Mar 17, 2016 17:33
[2016-03-16 12:00] VITALS: BP 123/61; PULSE 62; RESP 17; TEMP 99.5; O2SAT 93
[2016-03-16] MEDS ORDERED: FUROSEMIDE 20 MG/2 ML VIAL IV PUSH ONE (14:30)
--- NOTE | 2016-03-16 14:30 | HHI.PR ---
Subjective Remarks up in chair had + BM no abdominal pain or tenderness on exam Objective Vitals Vital Signs Date Time Temp Pulse Resp B/P Pulse Ox O2 Delivery O2 Flow Rate FiO2 03/16/16 12:00 99.5 62 17 123/61 93 03/16/16 09:15 Nasal Cannula 03/16/16 08:00 98.3 53 17 115/58 91 03/16/16 05:41 18 03/16/16 00:00 100.2 65 18 134/61 93 03/15/16 22:17 95 21 03/15/16 20:00 96.8 84 20 109/53 92 03/15/16 16:00 99.3 55 17 131/61 90 I/O 03/15/16 03/15/16 03/15/16 03/16/16 03/16/16 03/16/16 07:00 15:00 23:00 07:00 15:00 23:00 Intake Total 240 ml 240 ml 240 ml 240 ml Output Total 445 ml 270 ml 360 ml 30 ml Balance -205 ml 240 ml -30 ml -120 ml -30 ml Intake Oral 240 ml 240 ml 240 ml 240 ml Output Urine Total 400 ml 200 ml 300 ml Drainage Total 45 ml 70 ml 60 ml 30 ml # Voids 4 # Bowel Movements 0 1 0 0 Result Diagram: 03/15/16 0540 03/15/16 0540 Imaging Last Impressions Abdomen/Pelvis CT 03/12/16 1310 Signed Impressions: Service Date/Time: Saturday, March 12, 2016 14:37 - CONCLUSION: 1. Large amount of complex fluid seen throughout the abdomen and pelvis suspicious for hemorrhage. 2. There is a large complex mass in the right midabdomen which I suspect is a large hematoma. This is just inferior to the right lobe of the liver. 3. There are 2 benign-appearing hepatic cysts. 4. Status post cholecystectomy. Pop Anderson MD Chest X-Ray 03/12/16 0000 Signed Impressions: Service Date/Time: Saturday, March 12, 2016 13:52 - CONCLUSION: No acute pulmonary infiltrates. Pop Anderson MD Objective Remarks awake and alert, oriented x 3 anicteric lungs decreased breath sounds, + few basal rales regular rhythm, + systolic click abdomen- distended but soft, few bowel sounds, LYRIC bulb with bright red blood extremities + pretibial edema neuro exam- unremarkable Date of Removal: Mar 14, 2016 A/P Assessment and Plan 80-year-old male with: History of mechanical heart valve underwent laparoscopic cholecystectomy S/P Hemorrhagic shock from Acute Intraabdominal bleeding from recent laparoscopic cholecystectomy 03/06 Shock Liver- LFTs trending down - S/P 6 units RBC continue to monitor H and H - patient clinically up and ambulating around his room slowly- no complains of dizziness - Anticoagulation reversed with Protamine 50 mg IV on 03/12 . Vitamin K, FFP given on admissiion - General surgery ff along with us closely - recheck H and H in am History of mechanical heart valve history of hypertension - BP meds DC due to above - OAC/coumadin on hold due to post op bleeding with hematoma formation - needs to be restarted eventually - will monitor abdomen/H and H closely - Dr. Webster - cardiology ff along with us - cleared By GS to start coumadin 10 mg today- check INR in am + edema, fine rales on exam- x1 Lasix 10 mgIV S/P Acute kidney injury - resolved. - voiding well- alesia GOMEZ 03/14 Hyperglycemia - ff - likely reactive Hyperlipidemia- on statins- restarted- LFTS trended down- will ff and continue to monitor as OP Prophylaxis: PPI/SCDs. - patient up and ambulating Incentive spirometry hourly Cathryn Gee MD Mar 16, 2016 14:29
[2016-03-16 16:00] VITALS: BP 143/65; PULSE 55; RESP 17; TEMP 100; O2SAT 92
[2016-03-16 19:57] VITALS: O2SAT 92
[2016-03-16 20:00] VITALS: BP 137/63; PULSE 55; RESP 21; TEMP 97.4; O2SAT 94
[2016-03-16] MEDS: PRAVASTATIN SOD 80 MG TAB PO SCH (22:09)
[2016-03-17] VITALS: BP 118/56; PULSE 56; RESP 21; TEMP 97.6; O2SAT 92
[2016-03-17] MEDS: CHLORHEXIDINE GLUCONATE 2 % 1 PACK (2 CLOTHS) TOP SCH (04:00)
[2016-03-17 04:44] LABS: PROTHROMBIN TIME - PATIENT 10.7 SEC (9.8-11.6)
[2016-03-17 04:48] LABS: AUTOMATED NEUTROPHIL # 7.7 TH/MM3 (1.8-7.7); BASOPHIL # 0.1 TH/MM3 (0-0.2); BASOPHIL % 1.2 % (0.0-2.0); EOSINOPHIL # 0.2 TH/MM3 (0-0.4); EOSINOPHIL % 1.8 % (0.0-4.0); HEMATOCRIT 27.5 % (39.0-51.0); HEMO FLAGS DIFF FINAL; LYMPH % 14.1 % (9.0-44.0); LYMPHOCYTE # 1.5 TH/MM3 (1.0-4.8); MEAN CORPUSCULAR HEMOGLOBIN 31.1 PG (27.0-34.0); MONO % 9.3 % (0.0-8.0); NEUT % 73.6 % (16.0-70.0); PLATELET COUNT 171 TH/MM3 (150-450); RED BLOOD COUNT 3.09 MIL/MM3 (4.50-5.90); RED CELL DISTRIBUTION WIDTH 15.1 % (11.6-17.2); WHITE BLOOD COUNT 10.5 TH/MM3 (4.0-11.0)
[2016-03-17 05:02] LABS: BICARBONATE 26.8 MEQ/L (21.0-32.0); POTASSIUM 4.1 MEQ/L (3.5-5.1)
[2016-03-17 05:04] LABS: INDIRECT BILIRUBIN 0.5 MG/DL (0.0-0.8); TOTAL BILIRUBIN ADULT 0.7 MG/DL (0.2-1.0)
[2016-03-17] MEDS: SODIUM CHLORIDE 0.9% FLUSH 5 ML FLUSH IV FLUSH SCH ×2 (08:02→22:41)
[2016-03-17] MEDS: PANTOPRAZOLE SOD 20 MG DELAYED RELEASE TAB PO SCH (08:02)
[2016-03-17] MEDS ORDERED: WARFARIN SOD 10 MG TAB PO ONE (09:00)
[2016-03-17 09:50] VITALS: O2SAT 95
--- NOTE | 2016-03-17 10:30 | HHI.PR ---
Subjective Remarks up in chair had some loose stools, no abdominal pain, nausea or vomiting, tolerating diet Objective Vitals Vital Signs Date Time Temp Pulse Resp B/P Pulse Ox O2 Delivery O2 Flow Rate FiO2 03/17/16 01:05 16 03/17/16 00:00 97.6 56 21 118/56 92 03/16/16 20:00 97.4 55 21 137/63 94 03/16/16 19:57 92 21 03/16/16 16:00 100.0 55 17 143/65 92 03/16/16 12:00 99.5 62 17 123/61 93 I/O 03/16/16 03/16/16 03/16/16 03/17/16 03/17/16 03/17/16 07:00 15:00 23:00 07:00 15:00 23:00 Intake Total 240 ml 240 ml 360 ml Output Total 360 ml 30 ml 550 ml 590 ml Balance -120 ml -30 ml -310 ml -230 ml Intake Oral 240 ml 240 ml 360 ml IV Total 0 ml 0 ml Output Urine Total 300 ml 500 ml 500 ml Drainage Total 60 ml 30 ml 50 ml 90 ml # Bowel Movements 0 0 0 Result Diagram: 03/17/16 0359 03/17/16 0359 Imaging Last Impressions Abdomen/Pelvis CT 03/12/16 1310 Signed Impressions: Service Date/Time: Saturday, March 12, 2016 14:37 - CONCLUSION: 1. Large amount of complex fluid seen throughout the abdomen and pelvis suspicious for hemorrhage. 2. There is a large complex mass in the right midabdomen which I suspect is a large hematoma. This is just inferior to the right lobe of the liver. 3. There are 2 benign-appearing hepatic cysts. 4. Status post cholecystectomy. Pop Anderson MD Chest X-Ray 03/12/16 0000 Signed Impressions: Service Date/Time: Saturday, March 12, 2016 13:52 - CONCLUSION: No acute pulmonary infiltrates. Pop Anderson MD Objective Remarks awake and alert, oriented x 3 anicteric lungs decreased breath sounds, no rales or wheezes regular rhythm, + systolic click abdomen- nontender, soft, few bowel sounds, LYRIC bulb with bright red blood extremities + pretibial edema neuro exam- unremarkable Urinary Catheter: No Assessment to: Remove Date of Removal: Mar 14, 2016 A/P Assessment and Plan 80-year-old male with: History of mechanical heart valve underwent laparoscopic cholecystectomy S/P Hemorrhagic shock from Acute Intraabdominal bleeding from recent laparoscopic cholecystectomy 03/06 Shock Liver- LFTs trending down - S/P 6 units RBC continue to monitor H and H - patient clinically up and ambulating around his room slowly- no complains of dizziness - Anticoagulation reversed with Protamine 50 mg IV on 03/12 . Vitamin K, FFP given on admission - General surgery ff along with us closely History of mechanical heart valve history of hypertension Peripheral edema- rales now clear - given another 10 mg IV Lasix IV - BP meds DC due to above- was on HCTZ 12.5 as OP - Dr. Webster - cardiology ff along with us - start coumadin ff- INR S/P Acute kidney injury - resolved. - voiding well- alesia DC 03/14 Hyperglycemia - ff - likely reactive Hyperlipidemia- on statins- restarted- LFTS trended down- will ff and continue to monitor as OP Prophylaxis: PPI/SCDs. - patient up and ambulating Incentive spirometry hourly Cathryn Gee MD Mar 17, 2016 10:30
[2016-03-17] MEDS ORDERED: FUROSEMIDE 20 MG/2 ML VIAL IV PUSH ONE (10:45)
[2016-03-17 12:00] VITALS: BP 111/56; PULSE 59; RESP 17; TEMP 98.3; O2SAT 94
--- NOTE | 2016-03-17 14:36 | HHI.PR ---
Subjective Subjective Notes DAILY PROGRESS NOTE FOR SURGICAL ATTENDING, DR. HARRY SIMMS Up to chair Only mild pain at incision site Objective Vitals/I&O Vital Signs Date Time Temp Pulse Resp B/P Pulse Ox O2 Delivery O2 Flow Rate FiO2 03/17/16 12:00 98.3 59 17 111/56 94 03/17/16 09:50 21 03/16/16 09:15 Nasal Cannula 03/14/16 07:29 2.00 Labs Laboratory Tests Test 03/17/16 03:59 White Blood Count 10.5 Red Blood Count 3.09 Hemoglobin 9.6 Hematocrit 27.5 Mean Corpuscular Volume 89.0 Mean Corpuscular Hemoglobin 31.1 Mean Corpuscular Hemoglobin 35.0 Concent Red Cell Distribution Width 15.1 Platelet Count 171 Mean Platelet Volume 8.9 Neutrophils (%) (Auto) 73.6 Lymphocytes (%) (Auto) 14.1 Monocytes (%) (Auto) 9.3 Eosinophils (%) (Auto) 1.8 Basophils (%) (Auto) 1.2 Neutrophils # (Auto) 7.7 Lymphocytes # (Auto) 1.5 Monocytes # (Auto) 1.0 Eosinophils # (Auto) 0.2 Basophils # (Auto) 0.1 CBC Comment DIFF FINAL Differential Comment Prothrombin Time 10.7 Prothromb Time International 1.0 Ratio Sodium Level 138 Potassium Level 4.1 Chloride Level 106 Carbon Dioxide Level 26.8 Anion Gap 5 Blood Urea Nitrogen 19 Creatinine 0.94 Estimat Glomerular Filtration 78 Rate Random Glucose 94 Calcium Level 8.1 Total Bilirubin 0.7 Direct Bilirubin 0.2 Indirect Bilirubin 0.5 Aspartate Amino Transf 40 (AST/SGOT) Alanine Aminotransferase 60 (ALT/SGPT) Alkaline Phosphatase 51 Total Protein 4.9 Albumin 2.3 Radiology Last Impressions Abdomen/Pelvis CT 03/12/16 1310 Signed Impressions: Service Date/Time: Saturday, March 12, 2016 14:37 - CONCLUSION: 1. Large amount of complex fluid seen throughout the abdomen and pelvis suspicious for hemorrhage. 2. There is a large complex mass in the right midabdomen which I suspect is a large hematoma. This is just inferior to the right lobe of the liver. 3. There are 2 benign-appearing hepatic cysts. 4. Status post cholecystectomy. Pop Anderson MD Chest X-Ray 03/12/16 0000 Signed Impressions: Service Date/Time: Saturday, March 12, 2016 13:52 - CONCLUSION: No acute pulmonary infiltrates. Pop Anderson MD Cardiovascular: Regular Lungs: Clear Abdomen: Other (insicion without drainage; LYRIC with only minimal drainage---SS ) Extremities: No edema A/P Problem List: (1) Postoperative hemorrhagic shock (2) Intra abdominal hemorrhage (3) Mechanical heart valve present (4) Drug-induced bleeding disorder (5) Status post laparoscopic cholecystectomy Assessment and Plan 80 year old male POD5 exlap for intraabdominal hemorrhage s/p Cholecystectomy at outside institution -Hmg stable -Labs in the AM -OOB and mobilize; PT following -IS -Tolerating regular diet -Coumadin restarted -Cardiology following -Will probably need HHC with PT at home; plans to return to brother's house Probably can remove LYRIC on Sunday if there is minimal drainage Attending Statement NOTE FOR SURGICAL ATTENDING, DR. HARRY SIMMS I agree with above assessment and plan. Patient feels more comfortable Minimal drainage from LYRIC Started on Coumadin yesterday Hemoglobin appears stable Possible remove the LYRIC on Sunday The exam, history, and the medical decision-making described in the above note were completed with the assistance of the mid-level provider. I reviewed and agree with the findings presented. I attest that I had a [id number] encounter with the patient on the same day, and personally performed and documented my assessment and findings in the medical record. The following services were provided during this hospital visit: Chart data review, vital sign assessments/reviewing monitor data Review of consultations notes if present. Medication orders/review and/or management Ordering and/or reviewing lab tests Ordering and/or interpreting/reviewing x-rays and/or diagnostic studies Care of the patient and discussion of the patient with the care team Documentation time To help prompt me to consider important information that might be impacting today's encounter and assessment, information from prior notes written by myself or my colleagues may have been "brought forward/copy and pasted" into today's note. Problem Qualifiers (1) Postoperative hemorrhagic shock: Qualified Code: T81.19XA - Postoperative hemorrhagic shock, initial encounter Flori Stokes Mar 17, 2016 14:36 Harry Simms MD Mar 17, 2016 17:36
[2016-03-17 16:00] VITALS: BP 133/63; PULSE 54; RESP 17; TEMP 99.1; O2SAT 97
[2016-03-17] MEDS ORDERED: WARFARIN SOD 2.5 MG TAB PO SCH (16:00)
[2016-03-17] MEDS ORDERED: WARFARIN SOD 5 MG TAB PO SCH (16:00)
[2016-03-17 20:00] VITALS: BP 131/63; PULSE 66; RESP 21; TEMP 98.4; O2SAT 95
[2016-03-17] MEDS: PRAVASTATIN SOD 80 MG TAB PO SCH (21:40)
[2016-03-17] MEDS: ACETAMINOPHEN/HYDROcodone 325 MG/5 MG TAB PO PRN (21:45)
[2016-03-17] MEDS ORDERED: diphenhydrAMINE HCL 25 MG CAP PO ONE (22:15)
[2016-03-18] VITALS: BP 111/53; PULSE 53; RESP 20; TEMP 97; O2SAT 97
[2016-03-18] MEDS: ACETAMINOPHEN/HYDROcodone 325 MG/5 MG TAB PO PRN ×2 (03:47→22:44)
[2016-03-18] MEDS: CHLORHEXIDINE GLUCONATE 2 % 1 PACK (2 CLOTHS) TOP SCH (04:00)
[2016-03-18 05:22] LABS: HEMATOCRIT 27.5 % (39.0-51.0)
[2016-03-18 05:29] LABS: PROTHROMBIN TIME - PATIENT 11.4 SEC (9.8-11.6)
[2016-03-18] MEDS: PANTOPRAZOLE SOD 20 MG DELAYED RELEASE TAB PO SCH (07:33)
[2016-03-18] MEDS: SODIUM CHLORIDE 0.9% FLUSH 5 ML FLUSH IV FLUSH SCH ×2 (07:38→20:05)
[2016-03-18 08:00] VITALS: BP_SYST 110; BP_SYST 127; BP_DIAS 55; BP_DIAS 78; PULSE 102; PULSE 56; RESP 17; RESP 18; TEMP 97.9; TEMP 98.4; O2SAT 94; O2SAT 95
--- NOTE | 2016-03-18 08:52 | HHI.PR ---
Subjective Remarks comfortable, no abdominal pain, nausea or vomiting had a good night sleep + peripheral edema- improved with small dose of Lasix patient is a biker Objective Vitals Vital Signs Date Time Temp Pulse Resp B/P Pulse Ox O2 Delivery O2 Flow Rate FiO2 03/18/16 08:00 98.4 102 18 110/55 95 03/18/16 08:00 97.9 56 17 110/55 94 03/18/16 07:40 Room Air 03/18/16 00:00 97.0 53 20 111/53 97 03/17/16 20:00 98.4 66 21 131/63 95 03/17/16 16:00 99.1 54 17 133/63 97 03/17/16 12:00 98.3 59 17 111/56 94 03/17/16 09:50 95 21 I/O 03/17/16 03/17/16 03/17/16 03/18/16 03/18/16 03/18/16 07:00 15:00 23:00 07:00 15:00 23:00 Intake Total 360 ml 240 ml 240 ml 240 ml Output Total 590 ml 730 ml 425 ml 1000 ml Balance -230 ml -490 ml -185 ml -760 ml Intake Oral 360 ml 240 ml 240 ml 240 ml IV Total 0 ml 0 ml Output Urine Total 500 ml 700 ml 400 ml 1000 ml Drainage Total 90 ml 30 ml 25 ml 0 ml # Bowel Movements 0 1 0 0 Result Diagram: 03/18/16 0323 03/17/16 0359 Imaging Last Impressions Abdomen/Pelvis CT 03/12/16 1310 Signed Impressions: Service Date/Time: Saturday, March 12, 2016 14:37 - CONCLUSION: 1. Large amount of complex fluid seen throughout the abdomen and pelvis suspicious for hemorrhage. 2. There is a large complex mass in the right midabdomen which I suspect is a large hematoma. This is just inferior to the right lobe of the liver. 3. There are 2 benign-appearing hepatic cysts. 4. Status post cholecystectomy. Pop Anderson MD Chest X-Ray 03/12/16 0000 Signed Impressions: Service Date/Time: Saturday, March 12, 2016 13:52 - CONCLUSION: No acute pulmonary infiltrates. Ppo Anderson MD Objective Remarks awake and alert, oriented x 3 anicteric lungs decreased breath sounds, no rales or wheezes regular rhythm, + systolic click abdomen- nontender, soft, few bowel sounds, LYRIC bulb with blood extremities + edema neuro exam- unremarkable Date of Removal: Mar 14, 2016 A/P Assessment and Plan 80-year-old male with: History of mechanical heart valve underwent laparoscopic cholecystectomy S/P Hemorrhagic shock from Acute Intraabdominal bleeding from recent laparoscopic cholecystectomy 03/06 Shock Liver- LFTs trending down - S/P 6 units RBC continue to monitor H and H - patient clinically up and ambulating around his room slowly- no complains of dizziness - Anticoagulation reversed with Protamine 50 mg IV on 03/12 . Vitamin K, FFP given on admission - General surgery ff along with us closely - ff H and H History of mechanical heart valve history of hypertension Peripheral edema- lungs clear - given another 10 mg IV Lasix IV if BNP elevated- likely from blood products transfusion due to hypovolemic shock - BP meds DC due to shock on admission- was on HCTZ 12.5 as OP - Dr. Webster - cardiology ff along with us - start coumadin ff- INR- give another total 10 mg today S/P Acute kidney injury - resolved. - voiding well- dumas DC 03/14- ff BMP Hyperglycemia - ff - likely reactive Hyperlipidemia- on statins- restarted- LFTS trended down- will ff and continue to monitor as OP Prophylaxis: PPI/SCDs. - patient up and ambulating Incentive spirometry hourly Cathryn Gee MD Mar 18, 2016 08:52
--- NOTE | 2016-03-18 10:54 | HHI.PR ---
Subjective Subjective Notes feels ok, tolerating po, moving bowels Objective Vitals/I&O Vital Signs Date Time Temp Pulse Resp B/P Pulse Ox O2 Delivery O2 Flow Rate FiO2 03/18/16 08:00 98.4 102 18 110/55 95 03/18/16 07:40 Room Air 03/17/16 09:50 21 03/14/16 07:29 2.00 Labs Laboratory Tests Test 03/18/16 03:23 Hemoglobin 9.4 Hematocrit 27.5 Prothrombin Time 11.4 Prothromb Time International 1.0 Ratio Radiology Last Impressions Abdomen/Pelvis CT 03/12/16 1310 Signed Impressions: Service Date/Time: Saturday, March 12, 2016 14:37 - CONCLUSION: 1. Large amount of complex fluid seen throughout the abdomen and pelvis suspicious for hemorrhage. 2. There is a large complex mass in the right midabdomen which I suspect is a large hematoma. This is just inferior to the right lobe of the liver. 3. There are 2 benign-appearing hepatic cysts. 4. Status post cholecystectomy. Pop Anderson MD Chest X-Ray 03/12/16 0000 Signed Impressions: Service Date/Time: Saturday, March 12, 2016 13:52 - CONCLUSION: No acute pulmonary infiltrates. Pop Anderson MD Cardiovascular: Regular Lungs: Clear Abdomen: Non-distended, BS normal Wound Wound : Wound Location: Abdomen Appearance: Clean & Dry A/P Problem List: (1) Postoperative hemorrhagic shock (2) Intra abdominal hemorrhage (3) Mechanical heart valve present (4) Drug-induced bleeding disorder (5) Status post laparoscopic cholecystectomy Assessment and Plan s/p lap [place] post op bleeding - hgb stable, drain is serosanginous - will DC awaiting therapeutic INR nothing to add from surgical perspective Problem Qualifiers (1) Postoperative hemorrhagic shock: Qualified Code: T81.19XA - Postoperative hemorrhagic shock, initial encounter Zacarias Ta MD Mar 18, 2016 10:53
[2016-03-18 11:51] LABS: BICARBONATE 28.2 MEQ/L (21.0-32.0); POTASSIUM 3.8 MEQ/L (3.5-5.1)
[2016-03-18 12:00] VITALS: BP 113/63; PULSE 58; RESP 17; TEMP 98.1; O2SAT 95
[2016-03-18 16:00] VITALS: BP 147/66; PULSE 62; RESP 18; TEMP 97.9; O2SAT 96
[2016-03-18] MEDS ORDERED: WARFARIN SOD 10 MG TAB PO ONE (16:00)
[2016-03-18 20:00] VITALS: BP 131/60; PULSE 62; RESP 18; TEMP 99.2; O2SAT 94
[2016-03-18] MEDS: PRAVASTATIN SOD 80 MG TAB PO SCH (20:05)
[2016-03-18] MEDS: diphenhydrAMINE HCL 25 MG CAP PO PRN (22:44)
[2016-03-19] VITALS: BP 137/62; PULSE 51; RESP 18; TEMP 98.9; O2SAT 94
[2016-03-19] MEDS: CHLORHEXIDINE GLUCONATE 2 % 1 PACK (2 CLOTHS) TOP SCH (04:00)
[2016-03-19] MEDS: ACETAMINOPHEN/HYDROcodone 325 MG/5 MG TAB PO PRN ×2 (04:41→22:34)
[2016-03-19 07:23] LABS: HEMATOCRIT 28.5 % (39.0-51.0)
[2016-03-19 07:30] LABS: BICARBONATE 27.9 MEQ/L (21.0-32.0)
[2016-03-19 07:41] LABS: INTERNATIONAL NORMALIZED RATIO 1.2 RATIO; PROTHROMBIN TIME - PATIENT 13.3 SEC (9.8-11.6)
[2016-03-19 08:00] VITALS: BP 113/55; PULSE 55; RESP 18; TEMP 98.3; O2SAT 95
--- NOTE | 2016-03-19 08:24 | HHI.PR ---
Subjective Remarks up and ambulating + peripheral edema- lungs clear BNP elevated Objective Vitals Vital Signs Date Time Temp Pulse Resp B/P Pulse Ox O2 Delivery O2 Flow Rate FiO2 03/19/16 05:51 16 03/19/16 00:00 98.9 51 18 137/62 94 03/18/16 20:00 99.2 62 18 131/60 94 03/18/16 16:00 97.9 62 18 147/66 96 03/18/16 13:58 21 03/18/16 12:00 98.1 58 17 113/63 95 I/O 03/18/16 03/18/16 03/18/16 03/19/16 03/19/16 03/19/16 07:00 15:00 23:00 07:00 15:00 23:00 Intake Total 240 ml 720 ml 320 ml 240 ml Output Total 1000 ml 820 ml 940 ml 1000 ml Balance -760 ml -100 ml -620 ml -760 ml Intake Oral 240 ml 720 ml 320 ml 240 ml Output Urine Total 1000 ml 800 ml 900 ml 1000 ml Drainage Total 0 ml 20 ml 40 ml # Bowel Movements 0 2 0 0 Result Diagram: 03/19/16 0537 03/19/16 0537 Imaging Last Impressions Abdomen/Pelvis CT 03/12/16 1310 Signed Impressions: Service Date/Time: Saturday, March 12, 2016 14:37 - CONCLUSION: 1. Large amount of complex fluid seen throughout the abdomen and pelvis suspicious for hemorrhage. 2. There is a large complex mass in the right midabdomen which I suspect is a large hematoma. This is just inferior to the right lobe of the liver. 3. There are 2 benign-appearing hepatic cysts. 4. Status post cholecystectomy. Pop Anderson MD Chest X-Ray 03/12/16 0000 Signed Impressions: Service Date/Time: Saturday, March 12, 2016 13:52 - CONCLUSION: No acute pulmonary infiltrates. Pop Anderson MD Objective Remarks awake and alert, oriented x 3 anicteric lungs decreased breath sounds, no rales or wheezes regular rhythm, + systolic click abdomen- nontender, soft, few bowel sounds, LYRIC bulb with serosanguinous blood extremities + edema neuro exam- unremarkable Date of Removal: Mar 14, 2016 A/P Assessment and Plan 80-year-old male with: History of mechanical heart valve underwent laparoscopic cholecystectomy S/P Hemorrhagic shock from Acute Intraabdominal bleeding from recent laparoscopic cholecystectomy 03/06 Shock Liver- LFTs trending down - S/P 6 units RBC continue to monitor H and H - patient clinically up and ambulating around his room slowly- no complains of dizziness - Anticoagulation reversed with Protamine 50 mg IV on 03/12 . Vitamin K, FFP given on admission - General surgery ff along with us closely - H and H stable History of mechanical heart valve history of hypertension Peripheral edema- likely due to fluid overload from blood product transfusion - given another 20 mg IV Lasix x 1 - BP meds DC due to shock on admission- was on HCTZ 12.5 as OP - Dr. Webster - cardiology ff along with us -coumadin resumed 03/17 . ff- INR- dose for 15 mg today S/P Acute kidney injury - resolved. - voiding well- dumas DC 03/14- ff BMP Hyperglycemia - ff - likely reactive Hyperlipidemia- on statins- restarted- LFTS trended down- will ff and continue to monitor as OP Prophylaxis: PPI/SCDs. - patient up and ambulating Incentive spirometry hourly Cathryn Gee MD Mar 19, 2016 08:24
[2016-03-19] MEDS ORDERED: FUROSEMIDE 20 MG/2 ML VIAL IV PUSH ONE (08:30)
[2016-03-19] MEDS: PANTOPRAZOLE SOD 20 MG DELAYED RELEASE TAB PO SCH (08:43)
[2016-03-19] MEDS: SODIUM CHLORIDE 0.9% FLUSH 5 ML FLUSH IV FLUSH SCH ×2 (08:48→20:26)
[2016-03-19] MEDS ORDERED: FUROSEMIDE 20 MG/2 ML VIAL IV PUSH SCH (09:00)
--- NOTE | 2016-03-19 11:02 | HHI.PR ---
Subjective Subjective Notes no acute issues, po 1280, no nausea, +bm kleber 60cc serosang Objective Vitals/I&O Vital Signs Date Time Temp Pulse Resp B/P Pulse Ox O2 Delivery O2 Flow Rate FiO2 03/19/16 09:19 Room Air 03/19/16 08:00 98.3 55 18 113/55 95 03/18/16 13:58 21 Labs Laboratory Tests Test 03/19/16 03/19/16 05:37 06:31 Hemoglobin 9.8 Hematocrit 28.5 Sodium Level 139 Potassium Level 4.0 Chloride Level 104 Carbon Dioxide Level 27.9 Anion Gap 7 Blood Urea Nitrogen 18 Creatinine 0.94 Estimat Glomerular Filtration 78 Rate Random Glucose 84 Calcium Level 8.4 Prothrombin Time 13.3 Prothromb Time International 1.2 Ratio Radiology Last Impressions Abdomen/Pelvis CT 03/12/16 1310 Signed Impressions: Service Date/Time: Saturday, March 12, 2016 14:37 - CONCLUSION: 1. Large amount of complex fluid seen throughout the abdomen and pelvis suspicious for hemorrhage. 2. There is a large complex mass in the right midabdomen which I suspect is a large hematoma. This is just inferior to the right lobe of the liver. 3. There are 2 benign-appearing hepatic cysts. 4. Status post cholecystectomy. Pop Anderson MD Chest X-Ray 03/12/16 0000 Signed Impressions: Service Date/Time: Saturday, March 12, 2016 13:52 - CONCLUSION: No acute pulmonary infiltrates. Pop Anderson MD Cardiovascular: Regular Lungs: Clear Abdomen: Other (incisions with suture c/d/i, KLEBER serosang) A/P Problem List: (1) Postoperative hemorrhagic shock (2) Intra abdominal hemorrhage (3) Mechanical heart valve present (4) Drug-induced bleeding disorder (5) Status post laparoscopic cholecystectomy Assessment and Plan s/p lap [place] with complication of post op bleeding - HH stable, no evidence of further bleeding drain is serosanginous - will DC today awaiting therapeutic INR echo planning today per medicine Problem Qualifiers (1) Postoperative hemorrhagic shock: Qualified Code: T81.19XA - Postoperative hemorrhagic shock, initial encounter Jakub Barrera MD Mar 19, 2016 11:02
[2016-03-19 12:00] VITALS: BP 108/52; PULSE 56; RESP 16; TEMP 98.6; O2SAT 96
[2016-03-19] MEDS ORDERED: POTASSIUM CHLORIDE 20 MEQ CONTROLLED RELEASE TAB PO ONE (14:00)
[2016-03-19 16:00] VITALS: BP 112/53; PULSE 55; RESP 14; TEMP 99; O2SAT 96
[2016-03-19] MEDS ORDERED: WARFARIN SOD 10 MG TAB PO ONE (16:00)
[2016-03-19] MEDS ORDERED: WARFARIN SOD 5 MG TAB PO ONE (16:00)
[2016-03-19 17:30] VITALS: O2SAT 93
[2016-03-19 20:00] VITALS: BP 145/67; PULSE 60; RESP 22; TEMP 97.7; O2SAT 96
[2016-03-19] MEDS: PRAVASTATIN SOD 80 MG TAB PO SCH (20:26)
[2016-03-19] MEDS: diphenhydrAMINE HCL 25 MG CAP PO PRN (22:34)
[2016-03-20] VITALS: BP 114/55; PULSE 54; RESP 20; TEMP 97.5; O2SAT 95
[2016-03-20] MEDS: ACETAMINOPHEN/HYDROcodone 325 MG/5 MG TAB PO PRN ×2 (03:51→22:08)
[2016-03-20] MEDS: CHLORHEXIDINE GLUCONATE 2 % 1 PACK (2 CLOTHS) TOP SCH (03:51)
[2016-03-20 05:35] LABS: BASOPHIL % 0.5 % (0.0-2.0); EOSINOPHIL # 0.2 TH/MM3 (0-0.4); HEMATOCRIT 28.8 % (39.0-51.0); HEMO FLAGS DIFF FINAL; LYMPH % 13.6 % (9.0-44.0); LYMPHOCYTE # 0.9 TH/MM3 (1.0-4.8); MEAN CELL VOLUME 88.3 FL (80.0-100.0); MEAN CORPUSCULAR HEMOGLOBIN 30.5 PG (27.0-34.0); MEAN CORPUSCULAR HGB CONC 34.6 % (32.0-36.0); MONO % 10.8 % (0.0-8.0); NEUT % 72.1 % (16.0-70.0); PLATELET COUNT 291 TH/MM3 (150-450); RED BLOOD COUNT 3.26 MIL/MM3 (4.50-5.90); RED CELL DISTRIBUTION WIDTH 14.5 % (11.6-17.2)
[2016-03-20 05:38] LABS: INTERNATIONAL NORMALIZED RATIO 1.7 RATIO; PROTHROMBIN TIME - PATIENT 19.8 SEC (9.8-11.6)
[2016-03-20 06:00] LABS: ALT (GPT) 66 U/L (12-78); ANION GAP 8 MEQ/L (5-15); AST (GOT) 37 U/L (15-37); BICARBONATE 26.5 MEQ/L (21.0-32.0); BLOOD UREA NITROGEN 17 MG/DL (7-18); CHLORIDE 105 MEQ/L (98-107); GLOMERULAR FILTRATION RATE 82 ML/MIN (>89); SODIUM (NA) 139 MEQ/L (136-145)
[2016-03-20 06:02] LABS: ALKALINE PHOSPHATASE 57 U/L (45-117); TOTAL BILIRUBIN ADULT 0.5 MG/DL (0.2-1.0)
[2016-03-20 08:00] VITALS: BP 119/56; PULSE 54; RESP 17; TEMP 97.8; O2SAT 94
[2016-03-20] MEDS: SODIUM CHLORIDE 0.9% FLUSH 5 ML FLUSH IV FLUSH SCH ×2 (08:50→22:07)
[2016-03-20] MEDS: PANTOPRAZOLE SOD 20 MG DELAYED RELEASE TAB PO SCH (08:52)
--- NOTE | 2016-03-20 09:10 | HHI.PR ---
Subjective Remarks no abdominal pain tolerating po well up and ambulating Objective Vitals Vital Signs Date Time Temp Pulse Resp B/P Pulse Ox O2 Delivery O2 Flow Rate FiO2 03/20/16 08:00 97.8 54 17 119/56 94 03/20/16 04:52 18 03/20/16 00:00 97.5 54 20 114/55 95 03/19/16 21:22 21 03/19/16 20:26 Room Air 03/19/16 20:00 97.7 60 22 145/67 96 03/19/16 17:30 93 03/19/16 16:00 99.0 55 14 112/53 96 03/19/16 12:00 98.6 56 16 108/52 96 03/19/16 09:19 Room Air I/O 03/19/16 03/19/16 03/19/16 03/20/16 03/20/16 03/20/16 07:00 15:00 23:00 07:00 15:00 23:00 Intake Total 240 ml 800 ml 480 ml 120 ml Output Total 1000 ml 930 ml 200 ml 1050 ml Balance -760 ml -130 ml 280 ml -930 ml Intake Oral 240 ml 800 ml 480 ml 120 ml Output Urine Total 1000 ml 900 ml 200 ml 1050 ml Drainage Total 30 ml # Bowel Movements 0 0 0 0 Result Diagram: 03/20/16 0502 03/20/16 0502 Imaging Last Impressions Abdomen/Pelvis CT 03/12/16 1310 Signed Impressions: Service Date/Time: Saturday, March 12, 2016 14:37 - CONCLUSION: 1. Large amount of complex fluid seen throughout the abdomen and pelvis suspicious for hemorrhage. 2. There is a large complex mass in the right midabdomen which I suspect is a large hematoma. This is just inferior to the right lobe of the liver. 3. There are 2 benign-appearing hepatic cysts. 4. Status post cholecystectomy. Pop Anderson MD Chest X-Ray 03/12/16 0000 Signed Impressions: Service Date/Time: Saturday, March 12, 2016 13:52 - CONCLUSION: No acute pulmonary infiltrates. Pop Anderson MD Objective Remarks awake and alert, oriented x 3 anicteric lungs decreased breath sounds, no rales or wheezes regular rhythm, + systolic click abdomen- nontender, soft, few bowel sounds, extremities + pretibial edema neuro exam- unremarkable Date of Removal: Mar 14, 2016 A/P Assessment and Plan 80-year-old male with: History of mechanical heart valve underwent laparoscopic cholecystectomy S/P Hemorrhagic shock from Acute Intraabdominal bleeding from recent laparoscopic cholecystectomy 03/06 Shock Liver- resolved - S/P 6 units RBC continue to monitor H and H - patient clinically up and ambulating around his room slowly- no complains of dizziness - Anticoagulation reversed with Protamine 50 mg IV on 03/12 . Vitamin K, FFP given on admission - General surgery ff along with us closely - H and H stable- coumadin restarted History of mechanical heart valve history of hypertension Peripheral edema- likely due to fluid overload from blood product transfusion, BNP 900s - given another 20 mg IV Lasix x 1 03/20. Check Echo. KCL 20 meq po today after Lasix - BP meds DC due to shock on admission- was on HCTZ 12.5 as OP - Dr. Webster - cardiology ff along with us - coumadin resumed 03/17 . - INR 1.7 today - dose for coumadin 10 mg today . INR in am - home if INR 2.5-3.5 S/P Acute kidney injury - resolved. - voiding well- dumas DC 03/14- ff BMP Hyperglycemia - ff - likely reactive Hyperlipidemia- on statins- restarted- LFTS trended down- will ff and continue to monitor as OP Prophylaxis: PPI/SCDs. - patient up and ambulating Incentive spirometry hourly DC planning Needs a PCP to ff up with- Fr. Gan is from [place] OP ff up with Dr. Webster CM consult for home nursing ff up Cathryn Gee MD Mar 20, 2016 09:10
[2016-03-20] MEDS ORDERED: FUROSEMIDE 20 MG/2 ML VIAL IV PUSH ONE (09:15)
--- NOTE | 2016-03-20 09:17 | HHI.FF ---
Face to Face Verification Diagnosis: (1) Postoperative hemorrhagic shock (2) Mechanical heart valve present (3) Status post laparoscopic cholecystectomy Physical Therapy Order: Evaluate and Treat, Improve ambulation Home Health Nursing Order: Medical education Signs/symptoms of disease process Wound care and dressing changes Pool Manager Order: To Evaluate: Support services Order: To Provide: Community services I have seen patient Wiley Gan on 03/20/16. My clinical findings support the need for the requested home health care services because: Ltd mobility - disease progression Deconditioned w/ increased weakness Need for psychosocial assistance I certify that my clinical findings support that this patient is homebound because: Need for psychosocial assistance Cathryn Gee MD Mar 20, 2016 09:17
[2016-03-20 12:00] VITALS: BP 108/55; PULSE 61; RESP 18; TEMP 96.9; O2SAT 96
[2016-03-20 12:22] VITALS: O2SAT 97
[2016-03-20] MEDS ORDERED: POTASSIUM CHLORIDE 20 MEQ CONTROLLED RELEASE TAB PO ONE (13:15)
[2016-03-20 16:00] VITALS: BP 131/64; PULSE 55; RESP 17; TEMP 98.3; O2SAT 98
[2016-03-20] MEDS ORDERED: WARFARIN SOD 10 MG TAB PO ONE (16:00)
--- NOTE | 2016-03-20 19:03 | EC ---
Study Study Date:03/20/2016 STUDY CONCLUSIONS SUMMARY - Left ventricle: The cavity size was normal. Wall thickness was normal. Systolic function was mildly to moderately reduced. The estimated ejection fraction was 40%, in the range of 40% to 45%. Diffuse hypokinesis. - Aortic valve: A bileaflet prosthesis was present. Mild regurgitation. Valve area: 0.94cm^2 (Vmax). - Pulmonic valve: Peak gradient: 12mm Hg (S). If LV function is below 40, please consider prescribing an ACEI or ARB or document rationale for non-use. PROCEDURE DATA STUDY STATUS: Elective. Procedure: Transthoracic echocardiography. Image quality was good. Scanning was performed from the parasternal, apical, and subcostal acoustic windows. Study completion: The patient tolerated the procedure well. Transthoracic echocardiography. M-mode, complete 2D, complete spectral Doppler, and color Doppler. Height: Height: 68in. Weight: Weight: 195.6lb. Body mass index: BMI: 29.8kg/m^2. Body surface area: BSA: 2.03m^2. Patient status: Inpatient. CARDIAC ANATOMY LEFT VENTRICLE: The cavity size was normal. Wall thickness was normal. Systolic function was mildly to moderately reduced. The estimated ejection fraction was 40%, in the range of 40% to 45%. Diffuse hypokinesis. AORTIC VALVE: Normal thickness leaflets. A bileaflet prosthesis was present. Doppler: Transvalvular velocity was within the normal range. There was no stenosis. Mild regurgitation. Valve area: 0.94cm^2 (Vmax). Indexed valve area: 0.46cm^2/m^2 (Vmax). Mean gradient: 26mm Hg (S). Peak gradient: 45mm Hg (S). AORTA: Aortic root: The aortic root was normal in size. MITRAL VALVE: Structurally normal valve. Doppler: Transvalvular velocity was within the normal range. There was no evidence for stenosis. Trace regurgitation. Peak gradient: 5mm Hg (D). LEFT ATRIUM: The atrium was at the upper limits of normal in size. RIGHT VENTRICLE: The cavity size was normal. Wall thickness was normal. PULMONIC VALVE: Doppler: Transvalvular velocity was within the normal range. There was no evidence for stenosis. No regurgitation. Peak gradient: 12mm Hg (S). TRICUSPID VALVE: Structurally normal valve. Doppler: Transvalvular velocity was within the normal range. No regurgitation. PULMONARY ARTERY: The main pulmonary artery was normal-sized. Systolic pressure was within the normal range. RIGHT ATRIUM: The atrium was normal in size. PERICARDIUM: There was no pericardial effusion. SYSTEMIC VEINS: Inferior vena cava: The vessel was normal in size. Patient weight: 195.6lb _Ejection fraction:_ 65-75% _Fractional shortening:_ 32% up to 5Kg 5-11.5Kg 11.6-22.9Kg 23-45Kg 45-57Kg Aortic Root 7-13 <17 13-22 17-27 17-27 LA diam 6-13 <23 24-38 33-47 37-40 RVID 10-17 7-15 7-15 7-18 8-17 LVIDd 12-22 <32 24-38 33-47 37-40 LVPW 2-4 3-6 5-7 6-8 7-8 IVS 2-4 3-6 5-7 6-8 7-8 BASIC MEASUREMENTS ADULT NORMAL Left ventricle LV internal dimension, ED, chordal *57.1 mm 43-52 level, PLAX LV internal dimension, ES, chordal *48.1 mm 23-38 level, PLAX Fractional shortening, chordal level, *16 % >29 PLAX LV posterior wall thickness, ED 9.85 mm IVS/LVPW ratio, ED 1.01 <1.3 Ventricular septum Septal thickness, ED 9.94 mm Aortic valve Leaflet separation 16 mm 15-26 BASIC MEASUREMENTS ADULT NORMAL Aortic valve Leaflet separation 16 mm 15-26 Aorta Root diameter, ED 29 mm 20-37 Left atrium Anterior-posterior dimension, ES 40 mm 19-40 Anterior-posterior dimension index, ES 1.97 cm/m^2 <2.2 LA/aortic root ratio 1.38 DOPPLER MEASUREMENTS ADULT NORMAL Main pulmonary artery Pressure, S 29 mm Hg =30 Aortic valve Peak velocity, S 337 cm/s Mean velocity, S 240 cm/s VTI, S 71.3 cm Mean gradient, S 26 mm Hg Peak gradient, S 45 mm Hg Valve area, Vmax 0.94 cm^2 Valve area index, Vmax 0.46 cm^2/m^2 Regurgitant velocity, ED 506 cm/s Regurgitant deceleration 1300 cm/s^2 Regurgitant pressure half-time 1145 ms Regurgitant gradient, ED 102 mm Hg Mitral valve Peak E-wave velocity 108 cm/s Peak A-wave velocity 102 cm/s Deceleration time *236 ms 150-230 Peak gradient, D 5 mm Hg Peak E/A ratio 1.1 Maximal regurgitant velocity 466 cm/s Tricuspid valve Regurgitant peak velocity 280 cm/s Peak RV-RA gradient, S 31 mm Hg Maximal regurgitant velocity 280 cm/s Systemic veins Estimated CVP 10 mm Hg Right ventricle RV pressure, S *41 mm Hg <30 Pulmonic valve Peak velocity, S 176 cm/s Peak gradient, S 12 mm Hg LEGEND: Mean values are shown as u=mean value. Asterisk (*) louise values outside specified normal range. Prepared and signed by Conrado Gill [id number]
[2016-03-20 20:00] VITALS: BP 132/61; PULSE 60; RESP 17; TEMP 98.1; O2SAT 95
[2016-03-20] MEDS: PRAVASTATIN SOD 80 MG TAB PO SCH (22:07)
[2016-03-20] MEDS: diphenhydrAMINE HCL 25 MG CAP PO PRN (22:08)
[2016-03-21] VITALS: BP 108/53; PULSE 59; RESP 17; TEMP 97.6; O2SAT 97
[2016-03-21] MEDS: ACETAMINOPHEN/HYDROcodone 325 MG/5 MG TAB PO PRN (03:39)
[2016-03-21] MEDS: CHLORHEXIDINE GLUCONATE 2 % 1 PACK (2 CLOTHS) TOP SCH (04:00)
[2016-03-21 05:08] LABS: INTERNATIONAL NORMALIZED RATIO 2.5 RATIO
[2016-03-21 08:00] VITALS: BP 129/59; PULSE 53; RESP 18; TEMP 98.2; O2SAT 96
[2016-03-21 08:40] VITALS: PULSE 53
[2016-03-21] MEDS: SODIUM CHLORIDE 0.9% FLUSH 5 ML FLUSH IV FLUSH SCH (08:50)
[2016-03-21] MEDS: PANTOPRAZOLE SOD 20 MG DELAYED RELEASE TAB PO SCH (08:50)
[2016-03-21 10:18] VITALS: O2SAT 96
[2016-03-21] MEDS ORDERED: HYDR-3516 PO (10:43)
--- NOTE | 2016-03-21 10:46 | HHI.DS ---
Discharge Summary Admission Date Mar 12, 2016 at 14:16 Discharge Date: Mar 21, 2016 Admitting Diagnosis Intraabdominal hemorrhage s/o recent cholecystectomy, syncope (1) Status post laparoscopic cholecystectomy ICD Code: Z90.49 Diagnosis: Principal (2) Mechanical heart valve present ICD Code: Z95.2 Diagnosis: Secondary (3) Postoperative hemorrhagic shock ICD Code: T81.19XA Diagnosis: Principal (4) Drug-induced bleeding disorder ICD Code: D68.318 Diagnosis: Principal Procedures S/P lap cholecystectomy Brief History - From Admission 72-year-old male with a medical history significant for mechanical aortic valve on anticoagulation who recently underwent cholecystectomy on March 06 at [facility]. He was on Lovenox preoperatively 150 mg every 12 hourly reportedly per family. Following cholecystectomy he required 3 units of PRBCs over the next 2 days and was Admitted at the hospital because of intra- abdominal blood loss and borderline blood pressure and was subsequently discharged on Friday 03/10 and was resumed on Coumadin and Lovenox 75 mg every 12 hourly. He continued to have some dizziness at home following discharge with lightheadedness. This morning patient got worse with increasing lightheadedness and abdominal tightness with increasing distention. He suddenly collapsed and EMS was called - patient was found to be hypotensive and transferred to [facility] ER. He was noted to have a blood pressure of 87 x 45 with heart rate in the 70s on arrival in the ER and appeared extremely pale for documentation. He was found to have free fluid in his abdomen on ultrasound done by ER physician and was diagnosed to have intra-abdominal bleeding. He was given 2 units of O- uncrossmatched blood stat and 1 L of normal saline bolus. Patient was accepted for admission by critical care medicine service and I immediately went to the ER on being notified. As I arrived patient was just being we'll await for CT abdomen pelvis. History is obtained by discussion with patient's family at bedside and subsequently from patient. When I evaluated the patient he was laying on the stretcher. He denied any lightheadedness on laying flat. He denied any chest pain or shortness of breath. He did complain of some abdominal tightness and distention. He had taken a dose of Lovenox 75 mg subcutaneously this morning around 10 AM and had Coumadin last night. He received vitamin K ordered by ER physician. I subsequently ordered protamine 50 mg IV stat after discussion with Dr. Simms who planned to take the patient to the OR. Off note patient did have some abnormal kidney function per family prior to discharge from [facility]. His creatinine was 3.3 today on arrival. History [facility] Past Medical History Narrative Medical High Cholesterol: Yes Diminished Hearing: No Hypertension: Yes Immunizations Current: Yes Past Surgical History Valve Replacement: Yes (NOV 1998) Status post aortic valve replacement with mechanical aortic valve Social History Alcohol Use: Moderate Tobacco Use: No Substance Use: No Allergies-Medications Allergies-Medications (Allergen,Severity, Reaction): Coded Allergies: No Known Allergies (Unverified , 03/12/16) Comments No known drug allergies. Reported Meds & Prescriptions Reported Meds & Active Scripts Active Reported Zetia (Ezetimibe) 10 Mg Tab 10 Mg PO HS Hydrochlorothiazide 12.5 Mg Tab 12.5 Mg PO HS Zocor (Simvastatin) 40 Mg Tab 40 Mg PO HS Coumadin (Warfarin) 5 Mg Tab 5 Mg PO MOTHSA @ HS Coumadin (Warfarin) 2.5 Mg Tab 2.5 Mg PO SUTUWEFR @ HS Allopurinol 100 Mg Tab 100 Mg PO BID ROS Review of Systems Except as stated in HPI: all other systems reviewed are Neg CBC/BMP: 03/20/16 0502 03/20/16 0502 Significant Findings Laboratory Tests Test 03/18/16 03/19/16 03/19/16 03/20/16 10:47 05:37 06:31 05:02 Blood Urea Nitrogen 19 MG/DL (7-18) Estimat Glomerular Filtration 74 ML/MIN (>89) 78 ML/MIN (>89) 82 ML/MIN (>89) Rate Calcium Level 8.0 MG/DL 8.4 MG/DL 8.3 MG/DL (8.5-10.1) (8.5-10.1) (8.5-10.1) B-Type Natriuretic Peptide 965 PG/ML (0-100) Hemoglobin 9.8 GM/DL 9.9 GM/DL (13.0-17.0) (13.0-17.0) Hematocrit 28.5 % 28.8 % (39.0-51.0) (39.0-51.0) Prothrombin Time 13.3 SEC 19.8 SEC (9.8-11.6) (9.8-11.6) Red Blood Count 3.26 MIL/MM3 (4.50-5.90) Neutrophils (%) (Auto) 72.1 % (16.0-70.0) Monocytes (%) (Auto) 10.8 % (0.0-8.0) Lymphocytes # (Auto) 0.9 TH/MM3 (1.0-4.8) Total Protein 5.1 GM/DL (6.4-8.2) Albumin 2.3 GM/DL (3.4-5.0) Test 03/21/16 04:00 Prothrombin Time 29.0 SEC (9.8-11.6) Imaging Last Impressions Abdomen/Pelvis CT 03/12/16 1310 Signed Impressions: Service Date/Time: Saturday, March 12, 2016 14:37 - CONCLUSION: 1. Large amount of complex fluid seen throughout the abdomen and pelvis suspicious for hemorrhage. 2. There is a large complex mass in the right midabdomen which I suspect is a large hematoma. This is just inferior to the right lobe of the liver. 3. There are 2 benign-appearing hepatic cysts. 4. Status post cholecystectomy. Pop Anderson MD Chest X-Ray 03/12/16 0000 Signed Impressions: Service Date/Time: Saturday, March 12, 2016 13:52 - CONCLUSION: No acute pulmonary infiltrates. Pop Anderson MD PE at Discharge awake and alert, oriented x 3 anicteric lungs decreased breath sounds, no rales or wheezes regular rhythm, + systolic click abdomen- nontender, soft, few bowel sounds, extremities + pretibial edema neuro exam- unremarkable Pt update on day of discharge Follow up visit S/P lap cholecystectomy with post op bleeding complications, [facility] heart valve. Pt. seen today. Reports he is doing well. Denies any pain/ discomfort. Denies n/v/d, hematemesis, rectal bleed. Denies SOB/ dyspnea, chest pain, palpitations, headache, dizziness. Plan to DC home discussed with patient. All concerns addressed. Hospital Course 80-year-old male with: History of mechanical heart valve underwent laparoscopic cholecystectomy S/P Hemorrhagic shock from Acute Intraabdominal bleeding from recent laparoscopic cholecystectomy 03/06 Shock Liver- resolved - S/P 6 units RBC. His H&H has been monitored while inpatient. - Anticoagulation reversed with Protamine 50 mg IV on 03/12 . Vitamin K, FFP given on admission - General surgery ff along with us closely. Follow up as out patient. - Patient clinically up and ambulating around his room slowly- no complains of dizziness - H and H stable- coumadin restarted. Latest h/h 9.9/28.8. - Previous lap sutures may be taken out today. RN notified. History of mechanical heart valve history of hypertension Peripheral edema- likely due to fluid overload from blood product transfusion, BNP 900s - given another 20 mg IV Lasix x 1 03/20. Check Echo. KCL 20 meq po today after Lasix - BP meds DC due to shock on admission- was on HCTZ 12.5 as OP - Dr. Webster - cardiology following along with us. Follow up in outpatient. - Coumadin resumed 03/17 . Dose for coumadin 10 mg given yesterday. - Goal INR reached. INR 2.5 today. S/P Acute kidney injury - resolved. - voiding well- dumas DC 03/14- Hyperglycemia - ff - likely reactive Hyperlipidemia- on statins- restarted- LFTS trended down- will ff and continue to monitor as OP Prophylaxis: PPI/SCDs. - patient up and ambulating Incentive spirometry hourly DC planning discussed with patient Needs a PCP to ff up with- Fr. Gan is from [place] OP ff up with Dr. Webster OP follow up with Surgery CM consult for home nursing ff up. Home health arrangement. Stable from Hospitalist standpoint. Written by Ranulfo Martinez, acting as scribe for Dr. Jackson on 03/21/16 at 10:21. The documentation accurately reflects the work performed [id number] by me on at 1021 Pt Condition on Discharge: Good Discharge Disposition: Disch w/ Home Health Serv Discharge Time: > 30 minutes Discharge Instructions DIET: Follow Instructions for: Heart Healthy Diet Speech Therapy-Diet Recommends: Regular Activities you can perform: Regular-No Restrictions Activities to Avoid: Driving for 24 hrs, Contact Sports, Lifting/Bending, Strenuous Activity Follow up Referrals: Cardiology - 1 Week Surgical - 1 Week with Harry Simms MD, Iszenn ARNP Mar 21, 2016 10:45 Shay Jackson MD Mar 21, 2016 19:09
--- NOTE | 2016-03-21 10:49 | HHI.DCPOC ---
Discharge Care Plan Diagnosis: (1) Status post laparoscopic cholecystectomy (2) Mechanical heart valve present (3) Drug-induced bleeding disorder (4) Postoperative hemorrhagic shock Your Health Problems Are: Bleeding Tendency Goals to Promote Your Health * To prevent worsening of your condition and complications * To maintain your health at the optimal level Directions to Meet Your Goals Take your medications as prescribed Follow your dietary instruction Follow activity as directed Keep your appointments as scheduled Take your immunizations and boosters as scheduled If your symptoms worsen call your PCP, if no PCP go to Urgent Care Center or Emergency Room Smoking is Dangerous to Your Health. Avoid second hand smoke Call the 24-hour hour crisis hotline for domestic abuse at Ranulfo Jeong Mar 21, 2016 10:49
--- NOTE | 2016-03-21 11:50 | HHI.PR ---
Subjective Subjective Notes DAILY PROGRESS NOTE FOR SURGICAL ATTENDING, DR. STUART SIMMS Doing well ready to go home Objective Vitals/I&O Vital Signs Date Time Temp Pulse Resp B/P Pulse Ox O2 Delivery O2 Flow Rate FiO2 03/21/16 08:40 53 03/21/16 08:40 96 Room Air 03/21/16 08:00 98.2 18 129/59 03/19/16 21:22 21 Labs Laboratory Tests Test 03/21/16 04:00 Prothrombin Time 29.0 Prothromb Time International 2.5 Ratio Radiology Last Impressions Abdomen/Pelvis CT 03/12/16 1310 Signed Impressions: Service Date/Time: Saturday, March 12, 2016 14:37 - CONCLUSION: 1. Large amount of complex fluid seen throughout the abdomen and pelvis suspicious for hemorrhage. 2. There is a large complex mass in the right midabdomen which I suspect is a large hematoma. This is just inferior to the right lobe of the liver. 3. There are 2 benign-appearing hepatic cysts. 4. Status post cholecystectomy. Pop Anderson MD Chest X-Ray 03/12/16 0000 Signed Impressions: Service Date/Time: Saturday, March 12, 2016 13:52 - CONCLUSION: No acute pulmonary infiltrates. 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 Artem Bundy Problem Qualifiers (1) Postoperative hemorrhagic shock: Qualified Code: T81.19XA - Postoperative hemorrhagic shock, initial encounter tSuart Simms MD Mar 21, 2016 11:50
== END 2016-03-21 13:18 | disposition home health service (06) | DRG 907 ==
LOC: NEPC 12:58 → NEDA 14:16 → N03B 22:19 → N07A 03-14 14:00
PROVIDERS: ADMIT Family Medicine; ATTEND Family Medicine
PROC: 0W9G4ZZ Drainage of Peritoneal Cavity, Percutaneous Endoscopic Approach (ICD-10-PCS; 2016-03-12)
PROC: 0W9G4ZZ Drainage of Peritoneal Cavity, Percutaneous Endoscopic Approach (ICD-10-PCS; 2016-03-12)
PROC: 30233K1 Transfusion of Nonautologous Frozen Plasma into Peripheral Vein, Percutaneous Approach (ICD-10-PCS; 2016-03-12)
PROC: 30233N1 Transfusion of Nonautologous Red Blood Cells into Peripheral Vein, Percutaneous Approach (ICD-10-PCS; 2016-03-12)
PROC: 0W3P4ZZ Control Bleeding in Gastrointestinal Tract, Percutaneous Endoscopic Approach (ICD-10-PCS; principal; 2016-03-12 16:37)
DX: K91.840 Postprocedural hemorrhage of a digestive system organ or structure following a digestive system procedure (principal); K72.00 Acute and subacute hepatic failure without coma; T81.19XA Other postprocedural shock, initial encounter; N17.9 Acute kidney failure, unspecified; D68.32 Hemorrhagic disorder due to extrinsic circulating anticoagulants; D62 Acute posthemorrhagic anemia; T45.515A Adverse effect of anticoagulants, initial encounter; Z95.2 Presence of prosthetic heart valve; Z79.01 Long term (current) use of anticoagulants; I10 Essential (primary) hypertension; R73.9 Hyperglycemia, unspecified; E78.5 Hyperlipidemia, unspecified; E87.70 Fluid overload, unspecified
CPT/HCPCS: 36430; 36556; 51702; 71010; 74176; 80048; 80053; 80076; 81001; 82805; 82948; 83735; 83880; 84100; 85014; 85018; 85025; 85027; 85384; 85610; 85730; 86850; 86900; 86901; 86920; 86927; 87641; 88304; 93306; 94002; 94003; 94150; 94664; 96372; C9113; J0131; J0610; J1130; J1815; J1940; J2250; J2270; J2370; J2405; J2543; J2710; J2720; J3010; J3370; J3430; J7030; J7050; P9016; P9017

== ENCOUNTER 2016-04-30 06:31 | Emergency (ER) | payer MEDICARE, OTHER ==
[~2016-04-30] VITALS: Ht 172.7 cm; Wt 74.0 kg
[~2016-04-30 06:31] MED LIST changes: +ALLO100T PO; -ANUS25SU PR; +COUM2.5T PO; +COUM5TAB PO; -EZET10 PO; +HYDR-3516 PO; -SIMV40 PO; -WARF2.5 PO; -WARF5 PO; +ZETI10TA5 PO; +ZOCO40TA PO; -ePHEDrine/NS 25 MG/5 ML SYR IV ONE
[2016-04-30 06:39] VITALS: BP 173/74; PULSE 80; RESP 16; TEMP 97.6; O2SAT 96
[2016-04-30] MEDS ORDERED: PRED1 PO (06:55)
[2016-04-30 07:15] LABS: BASOPHIL # 0.1 TH/MM3 (0-0.2); BASOPHIL % 0.4 % (0.0-2.0); EOSINOPHIL % 0.1 % (0.0-4.0); HEMATOCRIT 41.9 % (39.0-51.0); HEMO FLAGS DIFF FINAL; LYMPH % 8.9 % (9.0-44.0); LYMPHOCYTE # 1.3 TH/MM3 (1.0-4.8); MEAN CORPUSCULAR HEMOGLOBIN 30.7 PG (27.0-34.0); MEAN CORPUSCULAR HGB CONC 33.7 % (32.0-36.0); MONO % 5.4 % (0.0-8.0); NEUT % 85.2 % (16.0-70.0); PLATELET COUNT 210 TH/MM3 (150-450); RED BLOOD COUNT 4.61 MIL/MM3 (4.50-5.90); RED CELL DISTRIBUTION WIDTH 16.9 % (11.6-17.2); WHITE BLOOD COUNT 14.1 TH/MM3 (4.0-11.0)
--- NOTE | 2016-04-30 07:25 | RADRPT ---
EXAM DATE/TIME: 04/30/2016 07:11 [place] COMPARISON: CHEST SINGLE AP, March 12, 2016, 13:52. INDICATIONS : Palpitations MEDICAL HISTORY : Hypertension. SURGICAL HISTORY : CABG. ENCOUNTER: Initial ACUITY: 1 day PAIN SCORE: 0/10 LOCATION: chest FINDINGS: A single view of the chest demonstrates the lungs to be symmetrically aerated without evidence of mas s, infiltrate or effusion. Cardiomegaly and previous heart valve replacement. The cardiomediastinal contours are unremarkable. Osseous structures are intact. CONCLUSION: No acute disease. Cardiomegaly and previous heart valve replacement. Remy Borrero MD on April 30, 2016 at 7:23 Board Certified Radiologist. This report was verified electronically.
[2016-04-30 07:31] LABS: BICARBONATE 26.1 MEQ/L (21.0-32.0); MAGNESIUM 2.3 MG/DL (1.5-2.5); POTASSIUM 4.1 MEQ/L (3.5-5.1)
--- NOTE | 2016-04-30 07:37 | PD ---
HPI Chief Complaint: Cardiac Complaint Time Seen by Provider: 07:02 Travel History International Travel<30 days: No Contact w/Intl Traveler<30days: No Traveled to known affect area: No History of Present Illness HPI 80-year-old male presents with heart racing since he woke up early this morning. He denies associated symptoms with this other than a gout flare in his left heel that he's had over the past couple of weeks that he is taking allopurinol for. He states that he has no other concurrent complaints. He states his heart is not racing now but when he did check it earlier it felt erratic. He states he's never had atrial fibrillation or this symptom before. He states he currently does not have a respiratory supervisor here that he is following with. He states his primary care physician is Dr. Munroe. He states that he is just getting over having multiple issues from recently having his gallbladder out in February when he had postoperative bleeding that he had to return to the OR for in February of this year. Additionally he states he is off his blood pressure medications which include a combination pill of HCTZ and ARB but he does not know why. He states he doesn't take any other blood pressure medications. Quality is erratic. Severity is resolved. PFSH Past Medical History Hx Anticoagulant Therapy: Yes (COUMADIN) Cardiovascular Problems: Yes (MECHANICAL AORTIC VALVE) High Cholesterol: Yes Diminished Hearing: No Hypertension: Yes Immunizations Current: Yes Past Surgical History Cholecystectomy: Yes (03/06/16) Valve Replacement: Yes (NOV 1998) Social History Alcohol Use: No Tobacco Use: No Substance Use: No Allergies-Medications (Allergen,Severity, Reaction): Coded Allergies: No Known Allergies (Unverified , 04/30/16) Reported Meds & Prescriptions Reported Meds & Active Scripts Active Reported Prednisone 1 Mg Tab 4 Mg PO DAILY taperred dose 6 days Zetia (Ezetimibe) 10 Mg Tab 10 Mg PO HS Zocor (Simvastatin) 40 Mg Tab 40 Mg PO HS Coumadin (Warfarin) 5 Mg Tab 5 Mg PO MOTHSA @ HS Coumadin (Warfarin) 2.5 Mg Tab 2.5 Mg PO SUTUWEFR @ HS Allopurinol 100 Mg Tab 100 Mg PO BID Review of Systems Except as stated in HPI: all other systems reviewed are Neg Physical Exam Narrative GENERAL: Well-nourished, well-developed patient. SKIN: Warm and dry. HEAD: Normocephalic and atraumatic. EYES: No injection or drainage. ENT: No nasal drainage noted. NECK: Supple, trachea midline. CARDIOVASCULAR: Regular rate and rhythm RESPIRATORY: Breath sounds equal bilaterally. No accessory muscle use. GASTROINTESTINAL: Abdomen soft, non-tender, nondistended. NEUROLOGICAL: Awake and alert. Moves all extremities. Normal speech. Data Data Last Documented VS Vital Signs Date Time Temp Pulse Resp B/P Pulse Ox O2 Delivery O2 Flow Rate FiO2 04/30/16 09:17 Room Air 04/30/16 08:13 57 20 144/64 96 04/30/16 06:39 97.6 Orders Magnesium (Mg) (04/30/16 07:02) Phosphorus (Po4) (04/30/16 07:02) Complete Blood Count With Diff (04/30/16 07:02) Basic Metabolic Panel (Bmp) (04/30/16 07:02) Act Partial Throm Time (Ptt) (04/30/16 07:02) Prothrombin Time / Inr (Pt) (04/30/16 07:02) Chest, Single Ap (04/30/16 ) Electrocardiogram (04/30/16 ) Iv Access Insert/Monitor (04/30/16 07:02) Ecg Monitoring (04/30/16 07:02) Oximetry (04/30/16 07:02) Urinalysis - C+S If Indicated (04/30/16 07:18) Holter Monitor Recording (04/30/16 ) Labs Laboratory Tests Test 04/30/16 04/30/16 07:08 07:39 White Blood Count 14.1 TH/MM3 Red Blood Count 4.61 MIL/MM3 Hemoglobin 14.1 GM/DL Hematocrit 41.9 % Mean Corpuscular Volume 91.0 FL Mean Corpuscular Hemoglobin 30.7 PG Mean Corpuscular Hemoglobin 33.7 % Concent Red Cell Distribution Width 16.9 % Platelet Count 210 TH/MM3 Mean Platelet Volume 8.5 FL Neutrophils (%) (Auto) 85.2 % Lymphocytes (%) (Auto) 8.9 % Monocytes (%) (Auto) 5.4 % Eosinophils (%) (Auto) 0.1 % Basophils (%) (Auto) 0.4 % Neutrophils # (Auto) 12.0 TH/MM3 Lymphocytes # (Auto) 1.3 TH/MM3 Monocytes # (Auto) 0.8 TH/MM3 Eosinophils # (Auto) 0.0 TH/MM3 Basophils # (Auto) 0.1 TH/MM3 CBC Comment DIFF FINAL Differential Comment Sodium Level 142 MEQ/L Potassium Level 4.1 MEQ/L Chloride Level 106 MEQ/L Carbon Dioxide Level 26.1 MEQ/L Anion Gap 10 MEQ/L Blood Urea Nitrogen 22 MG/DL Creatinine 1.10 MG/DL Estimat Glomerular Filtration 65 ML/MIN Rate Random Glucose 131 MG/DL Calcium Level 9.4 MG/DL Phosphorus Level 2.5 MG/DL Magnesium Level 2.3 MG/DL Prothrombin Time 40.4 SEC Prothromb Time International 3.5 RATIO Ratio Activated Partial 35.5 SEC Thromboplast Time Urine Color YELLOW Urine Turbidity CLEAR Urine pH 6.5 Urine Specific [place] 1.014 Urine Protein TRACE mg/dL Urine Glucose (UA) NEG mg/dL Urine Ketones NEG mg/dL Urine Occult Blood NEG Urine Nitrite NEG Urine Bilirubin NEG Urine Urobilinogen LESS THAN 2.0 MG/DL Urine Leukocyte Esterase NEG Urine RBC LESS THAN 1 /hpf Urine WBC LESS THAN 1 /hpf Urine Hyaline Casts 1 /lpf Urine Mucus FEW /lpf Microscopic Urinalysis Comment CULT NOT INDICATED MDM Medical Decision Making Medical Screen Exam Complete: Yes Emergency Medical Condition: Yes Medical Record Reviewed: Yes (past history confirmed) Interpretation(s) EKG is sinus bradycardia at 50 with first-degree AV block without STEMI criteria CBC & BMP Diagram 04/30/16 07:08 Last 24 hours Impressions Chest X-Ray 04/30/16 0000 Signed Impressions: Service Date/Time: Saturday, April 30, 2016 07:11 - CONCLUSION: No acute disease. Cardiomegaly and previous heart valve replacement. Remy Borrero MD inr therapeutic at 3.5 Differential Diagnosis Atrial fibrillation, SVT, anemia, electrolyte abnormality, atrial flutter Narrative Course Will check blood work, chest x-ray, EKG and monitor Patient has been in sinus rhythm here and his blood work is stable. We'll discuss with his primary to set up for outpatient Holter monitor and closely monitor Patient understands that his primary is not available by phone today. Patient denies any new complaints and states that they are feeling better. Patient happy with care, all questions answered. Patient knows that follow up is incumbent on them and to return to the emergency room immediately if new or worsening symptoms develop. Patient given strict return precautions, vitals reviewed and are normal, agrees to further workup as an outpatient and will call his primary. He was set up for Holter here in the emergency department Diagnosis Primary Impression: Palpitations Patient Instructions: General Instructions, Holter Monitoring (ED) Additional Instructions: return as needed, follow with primary tommorrow, use holter monitor as directed Med/Other Pt SpecificInfo: No Change to Meds Disposition: 01 DISCHARGE HOME Condition: Stable Marta Hubbard MD Apr 30, 2016 07:37
[2016-04-30 08:02] LABS: BLOOD, URINE NEG (NEG); COMMENT (UR) CULT NOT INDICATED; CULTURE IF INDICATED CULT NOT INDICATED; GLUCOSE,URINE NEG (NEG); HYALINE CAST, URINE 1 /lpf (RARE); KETONE, URINE NEG (NEG); MUCUS URINE FEW /lpf (OCC); NITRITE,URINE NEG (NEG); PH, URINE 6.5 (5.0-8.5); URINE COLOR YELLOW (YELLW/STRAW)
[2016-04-30 08:03] LABS: PROTHROMBIN TIME - PATIENT 40.4 SEC (9.8-11.6)
[2016-04-30 08:04] LABS: APTT (PATIENT) 35.5 SEC (24.3-30.1); INTERNATIONAL NORMALIZED RATIO 3.5 RATIO
[2016-04-30 08:13] VITALS: BP 144/64; PULSE 57; RESP 20; O2SAT 96
--- NOTE | 2016-04-30 12:27 | EKG ---
Date Performed: 04/30/2016 Time Performed: 07:22:16 PTAGE: 80 years EKG: Sinus rhythm WITH FIRST DEGREE AV BLOCK WITH OCCASIONAL SUPRAVENTRICULAR PREMATURE COMPLEXES MARKED LEFT AXIS DEV IATION INTRAVENTRICULAR CONDUCTION DELAY LEFT VENTRICULAR HYPERTROPHY AND ST-T CHANGE Cannot rule out LATERAL MYOCARDIAL INFARCTION ABNORMAL ECG NO PREVIOUS TRACING DOCTOR: Catracho Contreras Interpretating Date/Time 04/30/2016 12:26:56
--- NOTE | 2016-05-02 11:40 | HM ---
Date Performed: 04/30/2016 Time Performed: 12:33:00 HOOKUP DATE: 04/30/16 12:33:00 PM Sun ANALYSIS START TIME: 04/30/2016 12:38:00 PM ANALYSIS END TIME: 05/01/2016 12:42:00 PM PATIENT AGE: 80 PATIENT HEIGHT PATIENT WEIGHT DRUG LIST PATIENT DIAGNOSIS: irregular heart beat TEST NARRATIVE: The patient's average heart rate was 60 BPM. Heart rates greater than 120 B PM were noted < 1% of the time. Heart rates less than 50 BPM were noted 24% of the time. 2 pause s exceeding 2.0 seconds were noted. The longest pause of 2.0 seconds occurred at 04:07:32 AM Mon. 4021 ventricular ectopics, which represented 5% of the total beat count, were noted. The highest v entricular ectopic frequency occurred from 01:00 PM to 02:00 PM Sun. During this time 396 VE(s) occu rred. Ventricular ectopics were observed as 3722 isolated beat(s), as 120 couplet(s) and as 16 run(s ). Some of the ventricular beats occurred in bigeminal cycles. 811 supraventricular ectopics, wh ich represented 1% of the total beat count, were noted. The highest supraventricular ectopic frequen cy occurred from 02:00 PM to 03:00 PM Sun. During this time 94 SVE(s) occurred. No episodes of S T depression (defined as -1.0 mm or more) were noted in channel 1. No episodes of ST depression (def ined as -1.0 mm or more) were noted in channel 2. No episodes of ST depression (defined as -1.0 mm o r more) were noted in channel 3. NO DIARY ENTRIES MADE BY PATIENT TEST INTERPRETATION: Paroxysmal Atrial Fibrillation Frequent premature ventricluar complexes Signed by : Marlon Amezcua
== END 2016-04-30 13:17 | disposition home or self-care (01) ==
LOC: NEPC 06:31
DX: R00.2 Palpitations (principal); I48.0 Paroxysmal atrial fibrillation; R94.31 Abnormal electrocardiogram [ECG] [EKG]; I51.7 Cardiomegaly; I10 Essential (primary) hypertension; Z79.01 Long term (current) use of anticoagulants; Z95.2 Presence of prosthetic heart valve
CPT/HCPCS: 71010; 80048; 81001; 83735; 84100; 85025; 85610; 85730; 93005; 93225; 93226

== ENCOUNTER 2016-06-05 21:08 | Emergency (ER) | payer MEDICARE, OTHER ==
[~2016-06-05] VITALS: Ht 172.7 cm; Wt 74.5 kg
[~2016-06-05 21:08] MED LIST changes: -HYDR-3516 PO; -HYDR12.56 PO; +PRED1 PO
[2016-06-05 21:12] VITALS: BP 171/75; PULSE 65; RESP 16; TEMP 98.5; O2SAT 98
--- NOTE | 2016-06-05 21:26 | PD ---
Physical Exam Time Seen by Provider: 21:23 Narrative 80 yo M c/o elevated BP. Started on new BP medication today, by PCP. Denies symptoms of high BP. Patient on Coumadin for mechanical heart valve. Patient stable. Patient seen in triage. Awaiting bed placement. Data Data Last Documented VS Vital Signs Date Time Temp Pulse Resp B/P Pulse Ox O2 Delivery O2 Flow Rate FiO2 06/05/16 21:12 98.5 65 16 171/75 98 Room Air MDM Supervised Visit with ROBYN: Mabel Ovalles Jun 05, 2016 21:26
--- NOTE | 2016-06-05 23:28 | PD ---
HPI Chief Complaint: Hypertension Time Seen by Provider: 23:25 Travel History International Travel<30 days: No Contact w/Intl Traveler<30days: No Traveled to known affect area: No History of Present Illness HPI Patient is a 80-year-old male who presents to emergency room for evaluation of hypertension. Patient reports that he was started on blood pressure medications by Dr. Munroe a few weeks ago, reports that "the first medicines didn 't help me." Reports that he was started on any medication today by his primary care doctor as he believed his medications were not helping him. Patient reports that he checked his blood pressure today and it was noted to be elevated. Patient reports that he was concerned as blood pressure has been out of control for the past few weeks, reports that he was on valsartan 320mg as well as HCTZ12.5mg in the past and it worked well for him. Patient reports "i didnt take the medications Dr. Munroe wrote me, I just took my own medications at 5pm this afternoon." Patient reports that he checked his blood pressure shortly after he took his blood pressure medications, reports that it was still high so he decided to come to the emergency room for evaluation. Patient denies headache or dizziness. Patient denies any vision changes. Patient with no complaints at this time. PFSH Past Medical History Hx Anticoagulant Therapy: Yes (COUMADIN) Cardiovascular Problems: Yes (MECHANICAL AORATIC VALVUE) High Cholesterol: Yes Diminished Hearing: No Hypertension: Yes Immunizations Current: Yes Influenza Vaccination: Yes Past Surgical History Cholecystectomy: Yes (03/06/16) Valve Replacement: Yes (NOV 1998) Social History Alcohol Use: No Tobacco Use: No Substance Use: No Allergies-Medications (Allergen,Severity, Reaction): Coded Allergies: No Known Allergies (Unverified , 04/30/16) Reported Meds & Prescriptions Reported Meds & Active Scripts Active Reported Prednisone 1 Mg Tab 4 Mg PO DAILY taperred dose 6 days Zetia (Ezetimibe) 10 Mg Tab 10 Mg PO HS Zocor (Simvastatin) 40 Mg Tab 40 Mg PO HS Coumadin (Warfarin) 5 Mg Tab 5 Mg PO MOTHSA @ HS Coumadin (Warfarin) 2.5 Mg Tab 2.5 Mg PO SUTUWEFR @ HS Allopurinol 100 Mg Tab 100 Mg PO BID Review of Systems General / Constitutional: No: Fever Eyes: No: Visual changes HENT: No: Headaches Cardiovascular: No: Chest Pain or Discomfort Respiratory: No: Shortness of Breath Gastrointestinal: No: Abdominal Pain Genitourinary: No: Dysuria Musculoskeletal: No: Pain Skin: No Rash Neurologic: No: Weakness Psychiatric: No: Depression Endocrine: No: Polydipsia Hematologic/Lymphatic: No: Easy Bruising Physical Exam Narrative GENERAL: NAD, nontoxic SKIN: Focused skin assessment warm/dry. HEAD: Atraumatic. Normocephalic. EYES: Pupils equal and round. No scleral icterus. No injection or drainage. ENT: No nasal bleeding or discharge. Mucous membranes pink and moist. NECK: Trachea midline. No JVD. CARDIOVASCULAR: Regular rate and rhythm. No murmur appreciated. RESPIRATORY: No accessory muscle use. Clear to auscultation. Breath sounds equal bilaterally. GASTROINTESTINAL: Abdomen soft, non-tender, nondistended. Hepatic and splenic margins not palpable. MUSCULOSKELETAL: No obvious deformities. No clubbing. No cyanosis. No edema. NEUROLOGICAL: Awake and alert. No obvious cranial nerve deficits. Motor grossly within normal limits. Normal speech. PSYCHIATRIC: Appropriate mood and affect; insight and judgment normal. Data Data Last Documented VS Vital Signs Date Time Temp Pulse Resp B/P Pulse Ox O2 Delivery O2 Flow Rate FiO2 06/05/16 23:40 147/63 06/05/16 22:09 Room Air 06/05/16 21:12 98.5 65 16 98 MDM Medical Decision Making Medical Screen Exam Complete: Yes Emergency Medical Condition: Yes Interpretation(s) Vital Signs Date Time Temp Pulse Resp B/P Pulse Ox O2 Delivery O2 Flow Rate FiO2 06/05/16 23:40 147/63 06/05/16 22:09 Room Air 06/05/16 21:12 98.5 65 16 171/75 98 Room Air Differential Diagnosis Hypertension, anxiety reaction Narrative Course Patient is a 80-year-old male who presents to emergency room with complaints of hypertension. Patient reports that he has history of long-standing hypertension , reports that he was recently minutes the hospital for treatment of cholecystitis and had complications from it. Reports that he recently was recently started on antihypertensives for his blood pressure, patient concerned that the PCP did not put him on the right blood pressure medications. Reports that he would like to restart his prior antihypertensives as this is what he took today at 5pm. Patient reports "im going home to [facility] to see my own doctor" patient with no complaints at this time. Reports that he is very anxious and wanted to make sure his blood pressure was okay. BP at discharge 147/63. Signs and symptoms of when to return to the emergency room was reviewed with patient detail. Diagnosis Primary Impression: Hypertension Qualified Code: I10 - Essential hypertension Patient Instructions: General Instructions Additional Instructions: Please follow up with your primary care doctor Return to ER as needed Please take medications as reviewed Med/Other Pt SpecificInfo: No Change to Meds Disposition: 01 DISCHARGE HOME Condition: Stable Cat Dowell DO Jun 05, 2016 23:28
[2016-06-05 23:40] VITALS: BP 147/63
== END 2016-06-05 23:49 | disposition home or self-care (01) ==
LOC: NEPD 21:08
DX: I10 Essential (primary) hypertension (principal); Z79.01 Long term (current) use of anticoagulants; Z95.2 Presence of prosthetic heart valve
CPT/HCPCS: 99283

== ENCOUNTER 2016-06-06 19:40 | Emergency (ER) | payer MEDICARE ==
[~2016-06-06] VITALS: Ht 172.7 cm; Wt 74.5 kg
[2016-06-06 19:43] VITALS: BP 179/86; PULSE 56; RESP 16; TEMP 98.4; O2SAT 98
== END 2016-06-06 20:05 | disposition left against medical advice (07) ==
LOC: NED 19:40
DX: I10 Essential (primary) hypertension (principal)
CPT/HCPCS: 99281